=== PATIENT | female | born 1965 | race Caucasian/White ===

== ENCOUNTER 2022-03-30 02:32 | Day surgery (SDC) | payer OTHER, SELFPAY ==
[2022-03-21 08:37] VITALS: BMI 25.9
--- NOTE | 2022-03-30 08:37 | P.PNAN_ITS ---
Anes - Initial Pre Proc Eval Procedure: Operation Date: 03/30/22 11:30 Proposed Procedures p Colonoscopy - Nikita Juarez MD Date/Time: 03/30/22 08:37 Surgeon: Nikita Juarez MD Pre Op Diagnosis: diarrhea, rectal bleed Patient Data Age: 56 Gender: F Height: 1.78 m Weight: 82 kg Allergies Allergy/AdvReac Type Severity Reaction Status Date / Time No Known Drug Allergies Allergy Unknown n/a Verified 03/30/22 10:08 Home Medications Medication Instructions Recorded Confirmed Type albuterol sulfate 90 mcg/actuation 1 puff inhalation Q4H PRN 11/25/21 03/21/22 History aerosol inhaler (Ventolin HFA) Shortness Of Breath valacyclovir 500 mg tablet 500 mg PO DAILY PRN Inflammation 11/25/21 03/21/22 History magnesium 30 mg tablet 30 mg PO DAILY 12/29/21 03/21/22 History pyridoxine (vitamin B6) 25 mg 25 mg PO DAILY 12/29/21 03/21/22 History tablet duloxetine 30 mg capsule,delayed 30 mg PO DAILY 03/07/22 03/21/22 History release metronidazole 0.75 % topical cream 1 applic topical DAILY 03/07/22 03/21/22 History Patient hx anesthesia problems: none Family hx anesthesia problems: none Results Review: All pre-operative results and documents have been reviewed as part of the pre- operative evaluation. [facility] Past Medical History Medical History (Updated 03/30/22 @ 08:38 by Xander Mckay MD) COPD (chronic obstructive pulmonary disease) Depression Inflammatory arthritis Small fiber neuropathy Surgical History Surgical History H/O abdominal hysterectomy History of open heart surgery Family History Family History Father Hypertension Depression Alcoholism Sibling Hypertension Depression Alcoholism Mother Cancer History of parotid cancer Grandparent Breast cancer Social History Social History Smoking packs per day: 1 Smoking cigarettes per day: 20.0 Years smoked: 36 Smoking pack-years: 36.00 Smoking status: Former smoker Tobacco type: cigarettes Alcohol intake: never Substance use: never Substance use type: does not use Living arrangements: with family Spiritual care concerns: No Anes - Eval Final PreProcedure Day of Procedure 03/30/22 08:37 Patient weight: normal Heart: regular rate and rhythm Lungs: clear to auscultation and normal air movement Airway: Mallampati scale class II Neurological: alert and oriented Last oral intake: >/= 8 hours ASA classification: III Emergent: no Anesthetic plan: proceed Anesthesia type and monitoring: general GIVS Results Review: All pre-operative results and documents have been reviewed as part of the pre- operative evaluation. Informed Consent: The patient's anesthetic plan and its attendant risks and benefits were discussed with the patient/family/POA. Questions were solicited and answers provided to the satisfaction of the patient/family/POA.
[2022-03-30 10:09] VITALS: BP 112/60; PULSE 63; RESP 16; TEMP 36.7; O2SAT 97
[2022-03-30] MEDS: LACTATED RINGERS 1,000 ML 150 ML IV CONT (10:11)
--- NOTE | 2022-03-30 10:59 | WPDGICN ---
Assessment and Plan Assessment and plan (1) Chronic diarrhea: Code(s): K52.9 - Noninfective gastroenteritis and colitis, unspecified Status: Acute Assessment and Plan: Patient has chronic history of chronic ongoing diarrhea of uncertain etiology. Plan is for colonoscopy to assess more thoroughly. If this is not fruitful stool cultures may also give additional information. Fiber supplementation may help in the interim. (2) Rectal bleeding: Code(s): K62.5 - Hemorrhage of anus and rectum Status: Acute Assessment and Plan: Patient has intermittent rectal bleeding. Likely related to hemorrhoids but colonoscopy will be required to further evaluate. Further recommendations will be given after endoscopy. GI Consult Note Consult date/time: 03/30/22 10:59 Reason for consult: Chronic diarrhea and rectal bleeding. HPI: Cesilia Allison is a 56 year old female Referred for colonoscopy. Patient reports she has had chronic diarrhea for at least 15 years. She reports watery stool multiple times a day. She states she may only have a formed stool 3 times a year. She does intermittently have a fistful of bright red blood that will pass intermittently. This does not occur very often. She denies any significant associated pain. She has had no bleeding. Occasionally will have some rectal discomfort. She has had no stool cultures done. No prior workup for her diarrhea. She does on her own take [id number] Imodium occasionally. This will shut down the diarrhea for perhaps 2 days and then restart with diarrhea stools after several days. Patient has had no weight loss. She has had no change in her appetite. Past medical history is significant for an atrial septal defect requiring open heart surgery after delivery of her child. Review of Systems Review of Systems: Review of systems noncontributory. [facility] Past Medical History Medical History (Updated 03/30/22 @ 11:02 by Nikita Juarez MD) COPD (chronic obstructive pulmonary disease) Depression Inflammatory arthritis Small fiber neuropathy Surgical History Surgical History H/O abdominal hysterectomy History of open heart surgery Family History Family History Father Hypertension Depression Alcoholism Sibling Hypertension Depression Alcoholism Mother Cancer History of parotid cancer Grandparent Breast cancer Social History Social History Smoking packs per day: 1 Smoking cigarettes per day: 20.0 Years smoked: 36 Smoking pack-years: 36.00 Smoking status: Former smoker Tobacco type: cigarettes Alcohol intake: never Substance use: never Substance use type: does not use Living arrangements: with family Spiritual care concerns: No Meds Home Medications and Allergies Home Medications Medication Instructions Recorded Confirmed Type albuterol sulfate 90 mcg/actuation 1 puff inhalation Q4H PRN 11/25/21 03/21/22 History aerosol inhaler (Ventolin HFA) Shortness Of Breath valacyclovir 500 mg tablet 500 mg PO DAILY PRN Inflammation 11/25/21 03/21/22 History magnesium 30 mg tablet 30 mg PO DAILY 12/29/21 03/21/22 History pyridoxine (vitamin B6) 25 mg 25 mg PO DAILY 12/29/21 03/21/22 History tablet duloxetine 30 mg capsule,delayed 30 mg PO DAILY 03/07/22 03/21/22 History release metronidazole 0.75 % topical cream 1 applic topical DAILY 03/07/22 03/21/22 History Allergies Allergy/AdvReac Type Severity Reaction Status Date / Time No Known Drug Allergies Allergy Unknown n/a Verified 03/30/22 10:08 Vital Signs Vital Signs - 24 hr 03/30/22 10:09 Temperature 98.1 F Pulse Rate 63 Respiratory Rate 16 Blood Pressure 112/60 Pulse Oximetry 97 Oxygen Delivery Room Air Exam Narrative: Physical exam reveals pa
[2022-03-30 11:31] VITALS: BP 95/34; PULSE 60; RESP 21; O2SAT 99
[2022-03-30 11:41] VITALS: BP 104/45; PULSE 51; RESP 15; O2SAT 98
[2022-04-06 19:30] LABS: Gliadin AB, IgG <1.0 U/mL (<15.0); TTG IGA AB <1.0 U/mL (<15.0)
== END 2022-03-30 12:09 | disposition home or self-care (01) ==
PROVIDERS: Visit Provider Internal Medicine Gastroenterology
PROC: 0DJD8ZZ Inspection of Lower Intestinal Tract, Via Natural or Artificial Opening Endoscopic (ICD-10-PCS; CPT 45378; principal; 2022-03-30 11:30)
DX: K62.5 Hemorrhage of anus and rectum (principal); K62.1 Rectal polyp; K59.1 Functional diarrhea; K64.8 Other hemorrhoids; J44.9 Chronic obstructive pulmonary disease, unspecified; F32.A Depression, unspecified; M19.90 Unspecified osteoarthritis, unspecified site; G62.9 Polyneuropathy, unspecified; Z87.891 Personal history of nicotine dependence; Z79.51 Long term (current) use of inhaled steroids
CPT/HCPCS: 45385; 45380; 36415; 83516; 86255; 88305; J2704; J7120

== ENCOUNTER 2023-08-17 14:42 | Emergency (ER) | payer OTHER, SELFPAY ==
[2023-08-17 14:50] VITALS: BP 134/79; PULSE 107; RESP 18; TEMP 36.8; O2SAT 92
--- NOTE | 2023-08-17 14:54 | ED.DIZZY ---
HPI - Dizziness General Chief Complaint: Dizziness Stated Complaint: Shortness of Breath/Dizziness Time Seen by Provider: 08/17/23 14:54 Source: patient, RN notes reviewed and old records reviewed Mode of arrival: ambulatory Limitations: no limitations History of Present Illness HPI Narrative: 57 year old female who presents to [facility] care with complaints of continued shortness of breath and some dizziness which started this morning. Patient reports that she was put on Levaquin on Sunday for pneumonia and has inhaler which she has been using. Patient reports that initially 3 weeks ago saw her PCP and received Doxycycline and prednisone and was told it was flare in her COPD. She was seen again this past Sunday and diagnosed with pneumonia and was started on Levaquin. Patient reports that she has had this dizziness before and saw Dr Trini CALI MD elicited complaint: dizziness and other (continued shortness of breath) Pertinent past history: inner ear problems Onset (ago): week(s) (1) Timing: awoke with symptoms History of similar symptoms: Yes Related Data Home Medications Medication Instructions Recorded Confirmed duloxetine 30 mg capsule,delayed 30 mg PO DAILY 03/07/22 08/17/23 release levofloxacin 750 mg tablet 750 mg PO DIRECTED 08/17/23 08/17/23 Allergies Allergy/AdvReac Type Severity Reaction Status Date / Time No Known Drug Allergies Allergy Unknown n/a Verified 08/17/23 15:06 Review of Systems Review of Systems: CONSTITUTIONAL: Reports malaise, no chills, sweats, or fever. EYES: Denies visual changes, redness, or discharge. ENT: Reports rhinorrhea, congestion, sinus pain,no otalgia and sore throat. CARDIOVASCULAR: Denies chest pain, palpitations, or edema. RESPIRATORY: Reports cough.?Reports dyspnea. GASTROINTESTINAL: Denies abdominal pain, nausea, vomiting, diarrhea SKIN: Denies rash or itching. MUSCULOSKELETAL: Denies myalgia. NEUROLOGIC: Denies headache.reports dizziness All systems reviewed & are unremarkable except as noted in HPI and below PMFSH Past Medical History Medical History COPD (chronic obstructive pulmonary disease) Depression Inflammatory arthritis Small fiber neuropathy Surgical History Surgical History H/O abdominal hysterectomy History of open heart surgery Family History Family History Father Hypertension Depression Alcoholism Sibling Hypertension Depression Alcoholism Mother Cancer History of parotid cancer Grandparent Breast cancer Social History Social History Smoking packs per day: 1 Smoking cigarettes per day: 20.0 Years smoked: 36 Smoking pack-years: 36.00 Smoking status: Former smoker Tobacco type: cigarettes Alcohol intake: never Substance use: never Substance use type: does not use Living arrangements: with family Spiritual care concerns: No Comments At time of signature, agree with nursing past medical, surgical, social and family history. There is no relevant family history pertinent to the presenting complaint Exam Narrative: GENERAL: Well-appearing, well-nourished, and in no acute distress. HEAD: Normocephalic EYES: PERRLA, conjunctivae clear ENT: Nares clear, turbinates edematous and erythematous, clear discharge. Mucous membranes moist. TM pearly catalan with dull light reflex bilaterally; no tragal tenderness. Oropharynx erythematous without lesions. Tonsils not enlarged and without exudate, no drooling, no hoarseness, no trismus, uvula midline.post nasal drainage NECK: Supple. No lymphadenopathy CHEST: Coarse right base on auscultation, breath sounds equal. No wheezing, rhonchi, rales, or stridor. No respiratory distress, speaks in full sentences.cough with some dys
== END 2023-08-17 15:41 | disposition home or self-care (01) ==
PROVIDERS: Emergency Provider Registered Nurse
DX: R05.9 Cough, unspecified (principal); R42 Dizziness and giddiness; Z79.899 Other long term (current) drug therapy; Z87.891 Personal history of nicotine dependence
CPT/HCPCS: 99213; G0463

== ENCOUNTER 2023-09-12 10:10 | Emergency (ER) | payer OTHER, SELFPAY ==
--- NOTE | ~2023-09-12 | XR_ITS ---
EXAMINATION: XR chest 2V DATE: 09/12/2023 10:34 INDICATION: Cough with left-sided chest pain TECHNIQUE: frontal and lateral views of the chest were obtained. COMPARISON: None FINDINGS: Mild streaky bibasilar atelectasis and bilateral small paracardial fat pads. No other airspace opacit ies, pulmonary edema, pleural effusion or pneumothorax. Heart size is normal. Median sternotomy wires are present. IMPRESSION: 1. Mild streaky bibasilar atelectasis. Reviewed, dictated and finalized at location A. NICAL ADVISOR
[2023-09-12 10:21] VITALS: BP 135/72; PULSE 84; RESP 16; TEMP 36.9; O2SAT 97
--- NOTE | 2023-09-12 10:24 | ED.GENADULT ---
HPI - General Adult General Chief complaint: Upper Respiratory Infection Stated complaint: Cough/Chest Pain Source: patient, RN notes reviewed and old records reviewed Mode of arrival: ambulatory Limitations: no limitations History of Present Illness HPI narrative: 57-year-old female presents to [facility] with complaints of cough and chest congestion that started around Thanksgiving. Patient states has taken Levaquin and steroids without relief. Patient states saw software test analyst yesterday and was scheduled for pulmonary function tests. Patient states presents today because pain in left rib area that started this a.m.. MD complaint: chest pain Onset (ago): hour(s) (3) Related Data Home Medications Medication Instructions Recorded Confirmed duloxetine 30 mg capsule,delayed 30 mg PO DAILY 03/07/22 08/17/23 release Allergies Allergy/AdvReac Type Severity Reaction Status Date / Time No Known Drug Allergies Allergy Unknown n/a Verified 08/17/23 15:06 Review of Systems Constitutional: Constitutional: Reports no additional constitutional complaints, Denies body ache(s), Denies chills, Denies fatigue, Denies fever(s) and Denies headache(s) Eyes: Eyes: Reports no additional eye complaints and Denies blurry vision ENT: Reports system reviewed and no additional complaints, except as documented, Denies vertigo, Denies dizziness, Denies ear discharge, Denies otalgia, Denies facial pain, Denies headache(s), Denies nasal congestion, Denies nasal discharge, Denies sinus pain, Denies sinus pressure and Denies sore throat Cardiovascular: Cardiovascular: Reports no additional cardiovascular complaints, Reports chest pain, Denies chest pain at rest, Denies rapid heart rate and Denies dyspnea Respiratory: Respiratory: Reports no additional respiratory complaints, Reports chest congestion, Reports cough, Denies pain on inspiration, Denies pain with cough and Denies dyspnea Gastrointestinal: Gastrointestinal: Denies abdominal pain, Denies diarrhea, Denies nausea and Denies vomiting Integumentary/Breasts: Skin/Breast: Denies rash Neurologic: Reports system reviewed and no additional complaints, except as documented, Denies vertigo, Denies dizziness and Denies headache(s) Endocrine: Endocrine: Denies fatigue PMFSH Past Medical History Medical History COPD (chronic obstructive pulmonary disease) Depression Inflammatory arthritis Small fiber neuropathy Surgical History Surgical History H/O abdominal hysterectomy History of open heart surgery Family History Family History Father Hypertension Depression Alcoholism Sibling Hypertension Depression Alcoholism Mother Cancer History of parotid cancer Grandparent Breast cancer Social History Social History Smoking packs per day: 1 Smoking cigarettes per day: 20.0 Years smoked: 36 Smoking pack-years: 36.00 Smoking status: Former smoker Tobacco type: cigarettes Alcohol intake: never Substance use: never Substance use type: does not use Living arrangements: with family Spiritual care concerns: No Comments At the time of my signature, I reviewed and agree with the nursing past medical, surgical, social, and family history. There is no relevant family history pertinent to the patient complaint. Exam Const: General: cooperative, healthy appearing, no acute distress and well nourished Nutritional Appearance: well nourished Orientation/consciousness: patient oriented x3 Limitations: no limitations HENMT: Head: normal to inspection and normocephalic Ears: external ears normal, TM's normal bilaterally, mastoids normal and Abnormal EAC present Face/Nose/Sinus: normal facial exam Face and sinus: normal facial exam Mouth: Yes No
--- NOTE | 2023-09-12 12:57 | ECG_ITS ---
Measurements Intervals [place] Rate: 85 P: 77 UT: 159 QRS: 81 QRSD: 92 T: 70 QT: 395 QTc: 472 Interpretive Statements SINUS RHYTHM INCOMPLETE RIGHT BUNDLE BRANCH BLOCK BORDERLINE T WAVE ABNORMALITY- ANTERIOR LEADS BASELINE ARTIFACT- I, III, AVL, AVF BORDERLINE ECG NO PREVIOUS ECG AVAILABLE FOR COMPARISON Electronically Signed On 09-12-2023 13:40:10 OFFICE SECRETARY by Abad Walker D.O.
== END 2023-09-12 11:18 | disposition home or self-care (01) ==
PROVIDERS: Emergency Provider Registered Nurse
DX: J20.9 Acute bronchitis, unspecified (principal); I45.10 Unspecified right bundle-branch block; Z87.891 Personal history of nicotine dependence; J44.9 Chronic obstructive pulmonary disease, unspecified; M13.80 Other specified arthritis, unspecified site; G62.89 Other specified polyneuropathies
CPT/HCPCS: 71046; 93005; 99213; G0463

== ENCOUNTER 2024-01-03 10:31 | Emergency (ER) | payer OTHER, SELFPAY ==
[2024-01-03 10:48] VITALS: BP 145/72; PULSE 89; RESP 20; TEMP 36.9; O2SAT 97
--- NOTE | 2024-01-03 11:03 | ED.URI ---
HPI - URI/Sore Throat General Chief Complaint: Upper Respiratory Infection Stated Complaint: Chest congestion Time Seen by Provider: 01/03/24 11:03 Source: patient, RN notes reviewed and old records reviewed Mode of arrival: ambulatory Limitations: no limitations History of Present Illness HPI Narrative: 58-year-old female to [facility] with complaint of chest congestion and cough for 4 days. Patient states the cough became productive this morning while in the shower then that she coughed blood-tinged sputum. Patient reports history of former tobacco use, COPD, pneumonia. Patient denies allergies, fevers. patient in no acute distress. Respirations even and nonlabored. Patient able tolerate fluids by mouth. Related Data Home Medications Medication Instructions Recorded Confirmed duloxetine 30 mg capsule,delayed 30 mg PO DAILY 03/07/22 08/17/23 release Adults Multivitamin 01/03/24 potassium perchlorate 01/03/24 topiramate 25 mg tablet mg 01/03/24 Allergies Allergy/AdvReac Type Severity Reaction Status Date / Time No Known Drug Allergies Allergy Unknown n/a Verified 01/03/24 10:34 Review of Systems Review of Systems: All systems reviewed & are unremarkable except as noted in HPI and below Constitutional: Constitutional: Reports as per HPI, Denies fatigue and Denies fever(s) Eyes: Eyes: Reports no additional eye complaints ENT: Reports system reviewed and no additional complaints, except as documented Cardiovascular: Cardiovascular: Reports no additional cardiovascular complaints, Denies chest pain and Denies dyspnea Respiratory: Respiratory: Reports as per HPI, Reports chest congestion, Reports cough and Denies dyspnea Comments: Pt c/o substernal chest tightness Musculoskeletal: Musculoskeletal: Reports no additional musculoskeletal complaints Neurologic: Reports system reviewed and no additional complaints, except as documented Psychiatric: Psychiatric: Reports no additional psychiatric complaints [facility] Past Medical History Medical History COPD (chronic obstructive pulmonary disease) Depression Inflammatory arthritis Small fiber neuropathy Surgical History Surgical History H/O abdominal hysterectomy History of open heart surgery Family History Family History Father Hypertension Depression Alcoholism Sibling Hypertension Depression Alcoholism Mother Cancer History of parotid cancer Grandparent Breast cancer Social History Social History Smoking packs per day: 1 Smoking cigarettes per day: 20.0 Years smoked: 36 Smoking pack-years: 36.00 Smoking status: Former smoker Tobacco type: cigarettes Alcohol intake: never Substance use: never Substance use type: does not use Living arrangements: with family Spiritual care concerns: No Comments At the time of my signature, I reviewed and agree with the nursing past medical, surgical, social, and family history. There is no relevant family history pertinent to the patient complaint. Exam Const: General: cooperative, healthy appearing, comfortable, no acute distress, alert, anxious and well nourished Nutritional Appearance: well nourished Orientation/consciousness: patient oriented x3 Limitations: no limitations HENMT: Head: normal to inspection Ears: TM abnormal erythematous on the right and with fluid behind the TM on the right and diffuse Face/Nose/Sinus: Normal external nose present, Normal nares present, normal facial exam, No erythema and No edema Face and sinus: normal facial exam, no erythema and no edema Mouth: Yes Normal oral and palatal mucosa present Eyes: General: appearance normal, both eyes and all related structures Neck: Neck: normal vis
[2024-01-03] MEDS: ALBUTEROL SULFATE NEB 2.5 MG/3 ML INH INHALATION (11:31)
[2024-01-03] MEDS: IPRATROPIUM BR 0.02% INH SOLN 0.5 MG/2.5 ML VIAL INHALATION (11:31)
[2024-01-03 12:10] VITALS: PULSE 91; RESP 16; O2SAT 96
== END 2024-01-03 12:10 | disposition home or self-care (01) ==
PROVIDERS: Emergency Provider Nurse Practitioner Family
DX: J40 Bronchitis, not specified as acute or chronic (principal); J06.9 Acute upper respiratory infection, unspecified; J44.9 Chronic obstructive pulmonary disease, unspecified; M13.80 Other specified arthritis, unspecified site; G62.9 Polyneuropathy, unspecified; Z87.891 Personal history of nicotine dependence
CPT/HCPCS: 94640; 99213; G0463

== ENCOUNTER 2024-05-17 13:57 | Emergency (ER) | payer OTHER, SELFPAY ==
[2024-05-17 14:24] VITALS: BP 110/62; PULSE 96; RESP 20; TEMP 37; O2SAT 96
[2024-05-17 14:50] LABS: EDUAAPPEAR Cloudy; EDUABILI Negative (Negative); EDUABLOOD Trace (Negative); EDUACOLOR1 Yellow; EDUAGLUCOSE Negative (Negative); EDUAKETONE Negative (Negative); EDUALEUKO 1+ (Negative); EDUANITRATE Negative (Negative); EDUAPH 6.5; EDUAPROTEIN Negative (Negative); EDUASPGRAVITY 1.015; EDUAUROBILI 0.2
--- NOTE | 2024-05-17 21:31 | ED.GENADULT ---
HPI - General Adult General Chief complaint: Urogenital-Female Stated complaint: poss uti or kidney issue Time Seen by Provider: 05/17/24 14:38 Source: patient, RN notes reviewed and old records reviewed Mode of arrival: ambulatory Limitations: no limitations History of Present Illness HPI narrative: 58-year-old female to [facility] with complaint of right flank pain for 1 week and bilateral flank pain for past 2 days. Patient sources pain radiating to right lower quadrant. Patient denies nausea, bowel changes , fever, vomiting, allergies. Patient also endorsing urinary frequency. patient endorses UTI several years ago. Patient resting comfortably in exam room in no acute distress. Patient able to tolerate fluids by mouth. Related Data Home Medications Medication Instructions Recorded Confirmed duloxetine 30 mg capsule,delayed 30 mg PO DAILY 03/07/22 08/17/23 release Adults Multivitamin 01/03/24 potassium perchlorate 01/03/24 topiramate 25 mg tablet mg 01/03/24 Allergies Allergy/AdvReac Type Severity Reaction Status Date / Time No Known Drug Allergies Allergy Unknown n/a Verified 01/03/24 10:34 Review of Systems Review of Systems: All systems reviewed & are unremarkable except as noted in HPI and below Constitutional: Constitutional: Reports no additional constitutional complaints Eyes: Eyes: Reports no additional eye complaints ENT: Reports system reviewed and no additional complaints, except as documented Cardiovascular: Cardiovascular: Reports no additional cardiovascular complaints, Denies chest pain and Denies dyspnea Respiratory: Respiratory: Reports no additional respiratory complaints, Denies cough and Denies dyspnea Musculoskeletal: Musculoskeletal: Reports no additional musculoskeletal complaints Neurologic: Reports system reviewed and no additional complaints, except as documented Psychiatric: Psychiatric: Reports no additional psychiatric complaints [facility] Past Medical History Medical History COPD (chronic obstructive pulmonary disease) Depression Inflammatory arthritis Small fiber neuropathy Surgical History Surgical History H/O abdominal hysterectomy History of open heart surgery Family History Family History Father Hypertension Depression Alcoholism Sibling Hypertension Depression Alcoholism Mother Cancer History of parotid cancer Grandparent Breast cancer Social History Social History Smoking packs per day: 1 Smoking cigarettes per day: 20.0 Years smoked: 36 Smoking pack-years: 36.00 Smoking status: Former smoker Tobacco type: cigarettes Alcohol intake: never Substance use: never Substance use type: does not use Living arrangements: with family Spiritual care concerns: No Comments At the time of my signature, I reviewed and agree with the nursing past medical, surgical, social, and family history. There is no relevant family history pertinent to the patient complaint. Exam Const: General: cooperative, healthy appearing, comfortable, no acute distress, alert and well nourished Nutritional Appearance: well nourished Orientation/consciousness: patient oriented x3 Limitations: no limitations HENMT: Head: normal to inspection Ears: external ears normal Face/Nose/Sinus: Normal external nose present, Normal nares present, normal facial exam, No erythema and No edema Face and sinus: normal facial exam, no erythema and no edema Mouth: Yes Normal oral and palatal mucosa present Eyes: General: appearance normal, both eyes and all related structures Neck: Neck: normal visual inspection, full ROM and no meningeal signs Lymphatic: no lymphadenopathy noted and no lymphedema noted Chest: Chest
== END 2024-05-17 15:21 | disposition home or self-care (01) ==
PROVIDERS: Emergency Provider Nurse Practitioner Family
DX: N39.0 Urinary tract infection, site not specified (principal); J44.9 Chronic obstructive pulmonary disease, unspecified; M13.80 Other specified arthritis, unspecified site; Z87.891 Personal history of nicotine dependence
CPT/HCPCS: 81003; 87086; 87088; 99213; G0463

== ENCOUNTER 2024-06-30 11:30 | Emergency (ER) | payer OTHER, SELFPAY ==
--- NOTE | 2024-06-30 11:32 | ED.URI ---
HPI - URI/Sore Throat General Chief Complaint: Upper Respiratory Infection Stated Complaint: Sore Throat/Congestion/Cough Time Seen by Provider: 06/30/24 11:31 Source: patient Mode of arrival: ambulatory Limitations: no limitations History of Present Illness HPI Narrative: Patient is a 50-year-old female who presents with congestion, sore throat cough that started last night. Patient has been around grandson that has had similar symptoms over the weekend. Denies any fever, chills, nausea, vomiting, diarrhea. Has taken Delsym for cough. Reports history of COPD Related Data Home Medications Medication Instructions Recorded Confirmed duloxetine 30 mg capsule,delayed 30 mg PO DAILY 03/07/22 06/30/24 release topiramate 25 mg tablet 25 mg PO BID 01/03/24 06/30/24 magnesium mal 50 mg-potassium cit 1 tablet PO DAILY 06/30/24 06/30/24 25 mg-taurine 175 mg-B6 1 mg tablet multivitamin with minerals-folic 1 tablet PO DAILY 06/30/24 06/30/24 acid 0.4 mg tablet Allergies Allergy/AdvReac Type Severity Reaction Status Date / Time No Known Drug Allergies Allergy Unknown n/a Verified 06/30/24 11:40 Review of Systems Review of Systems: All systems reviewed & are unremarkable except as noted in HPI and below Constitutional: Constitutional: Denies body ache(s), Denies chills, Denies fatigue, Denies fever(s), Denies headache(s), Denies malaise and Denies weakness Eyes: Eyes: Denies blurry vision, Denies itchy eyes and Denies loss of vision ENT: Denies otalgia, Denies headache(s), Reports nasal congestion, Denies sinus pain and Reports sore throat Cardiovascular: Cardiovascular: Denies chest pain, Denies irregular heart rhythm and Denies dyspnea Respiratory: Respiratory: Reports cough and Denies dyspnea Gastrointestinal: Gastrointestinal: Denies abdominal pain, Denies diarrhea, Denies nausea and Denies vomiting Musculoskeletal: Musculoskeletal: Denies back pain, Denies myalgias and Denies arthralgias Integumentary/Breasts: Skin/Breast: Denies pruritus and Denies rash Neurologic: Denies headache(s), Denies loss of vision and Denies weakness Psychiatric: Psychiatric: Reports no additional psychiatric complaints Endocrine: Endocrine: Denies fatigue Allergic/Immunologic: Allergic/Immunologic: Denies itchy eyes PMFSH Past Medical History Medical History COPD (chronic obstructive pulmonary disease) Depression Inflammatory arthritis Small fiber neuropathy Surgical History Surgical History H/O abdominal hysterectomy History of open heart surgery Family History Family History Father Hypertension Depression Alcoholism Sibling Hypertension Depression Alcoholism Mother Cancer History of parotid cancer Grandparent Breast cancer Social History Social History Smoking packs per day: 1 Smoking cigarettes per day: 20.0 Years smoked: 36 Smoking pack-years: 36.00 Smoking status: Former smoker Tobacco type: cigarettes Alcohol intake: never Substance use: never Substance use type: does not use Living arrangements: with family Spiritual care concerns: No Comments At time of signature, agree with nursing past medical, surgical, social and family history. There is no relevant family history pertinent to the presenting complaint. Exam Const: General: cooperative, healthy appearing, comfortable, no acute distress and well nourished Nutritional Appearance: well nourished Orientation/consciousness: patient oriented x3 Limitations: no limitations HENMT: Head: normal to inspection, normocephalic and atraumatic Ears: hearing grossly normal bilaterally, external ears normal, TM's normal bilaterally, EAC's normal and no periauricular adenopathy Face/Nose/Sinus: Normal exte
[2024-06-30 11:36] VITALS: BP 133/80; PULSE 90; RESP 20; TEMP 36.5; O2SAT 98
[2024-06-30 11:51] VITALS: BP 133/80; PULSE 90; RESP 20; TEMP 36.5; O2SAT 98
[2024-06-30 12:06] LABS: EDSTREPNEGPOS1 Negative (Negative)
== END 2024-06-30 12:10 | disposition home or self-care (01) ==
PROVIDERS: Emergency Provider Nurse Practitioner Family
DX: J06.9 Acute upper respiratory infection, unspecified (principal); Z87.891 Personal history of nicotine dependence; J44.9 Chronic obstructive pulmonary disease, unspecified; M13.80 Other specified arthritis, unspecified site; G62.9 Polyneuropathy, unspecified
CPT/HCPCS: 87081; 87880; 99213; G0463

== ENCOUNTER 2024-09-22 13:12 | Emergency (ER) | payer OTHER, SELFPAY ==
[2024-09-22 13:18] VITALS: BP 152/84; PULSE 80; RESP 20; TEMP 36.6; O2SAT 94
--- NOTE | 2024-09-22 13:26 | ED_ITS ---
HPI - General Adult General Stated complaint: chest pains Time Seen by Provider: 09/22/24 13:20 Source: patient Mode of arrival: ambulatory Limitations: no limitations History of Present Illness HPI narrative: 58-year-old female with a history of copd and ASD (surgery age 22) presented for complaint of chest pain intermittently for 1 week. Endorses seeking evaluation today because she felt nausea, a little dizzy and tingling sensation to under arms. Currently rates pain 2/10 states at it's worse 7/10. Pain increases with deep breaths. She took 800 mg ibuprofen. Endorses a cough over 1 week ago For which she took Augmentin. Currently denies palpitations, shortness of breath, wheezing, nausea, vomiting, diarrhea, dizziness, fatigue, fever, or sweating. Related Data Home Medications ?Medication ?Instructions ?Recorded ?Confirmed ?Last Taken ?Type duloxetine 30 mg capsule,delayed 30 mg PO DAILY 03/07/22 06/30/24 Unknown History release magnesium mal 50 mg-potassium cit 1 tablet PO DAILY 06/30/24 06/30/24 Unknown History 25 mg-taurine 175 mg-B6 1 mg tablet multivitamin with minerals-folic 1 tablet PO DAILY 06/30/24 06/30/24 Unknown History acid 0.4 mg tablet fluticasone propionate 50 2 spray intranasal DAILY 09/22/24 Unknown History mcg/actuation nasal spray,suspension mometasone-formoterol HFA 100 1 puff inhalation Q12H 09/22/24 Unknown History mcg-5 mcg/actuation aerosol inhaler (Dulera) Allergies Allergy/AdvReac Type Severity Reaction Status Date / Time No Known Drug Allergies Allergy Unknown n/a Verified 06/30/24 11:40 DIET PILLS Allergy Severe Swelling Uncoded 09/22/24 13:36 of Lip/Tongue/Throat Review of Systems Review of Systems: ROS per HPI All systems reviewed & are unremarkable except as noted in HPI and below PMFSH Past Medical History Medical History (Updated 09/22/24 @ 13:48 by Leah Raza APRN) Atrial septal defect Depression Inflammatory arthritis Small fiber neuropathy COPD (chronic obstructive pulmonary disease) Surgical History Surgical History H/O abdominal hysterectomy History of open heart surgery Family History Family History Father Hypertension Depression Alcoholism Sibling Hypertension Depression Alcoholism Mother Cancer History of parotid cancer Grandparent Breast cancer Social History Social History Smoking packs per day: 1 Smoking cigarettes per day: 20.0 Years smoked: 36 Smoking pack-years: 36.00 Smoking status: Former smoker Tobacco type: cigarettes Alcohol intake: never Substance use: never Substance use type: does not use Living arrangements: with family Spiritual care concerns: No Comments At time of signature, I have reviewed and agree with nursing past medical, surgical, social and family history unless otherwise noted. Please see nursing chart for further information. There is no relevant family history pertinent to the presenting complaint Exam Narrative: GENERAL: Well-appearing, well-nourished, and in no acute distress. EYES: EOMI. No redness or drainage. Conjunctivae normal. ENT: Mucous membranes pink and moist. No rhinorrhea. NECK: Normal AROM. Supple. No lymphadenopathy. CHEST: No respiratory distress. Clear to auscultation. HEART: Regular rate and rhythm. No murmur appreciated. Normal peripheral pulses. ABDOMEN: Soft, nontender, nondistended, normal active bowel sounds. MUSCULOSKELETAL: No bony tenderness. EXTREMITIES: Normal range of motion. No edema. SKIN: Warm, dry, no rash. Capillary refill normal. Normal skin turgor. NEURO: No focal deficits. Alert and oriented x3. Gait steady. PSYCH: Normal affect. No signs of depression or anxiety. Course Course Emergency Course: Patient is aware of diagnosis, understands and agrees to treatment plan. Anticipatory guidance given. Patient agrees to follow-up as directed and is aware of reasons to seek care at the emergency department. Portions of this record may have been created with voice recognition software Level of Care: Express Care Visit Transfer Transfered to: [facility]) Transportation: Other ( private vehicle) Transfer rationale: Pt is agreeable to transfer. Requests transfer to [facility] via private vehicle; declined ambulance. Risks of transportation reviewed with pt including injury, worsening of condition and . v/u. will be driving pt; Report called to hospital, spoke with Columba PADILLA, Dr Vogt accepting physician. Pt is in stable condition at time of transfer. Advised to remain NPO and go directly to the hospital. Medical Decision Making MDM Narrative Medical decision making narrative: Patient presented with intermittent chest pain for 1 week, EKG NSR. history of ASD. Advised ER transfer. She declined EMS and will have her drive. Patient is currently stable. Vital signs stable. Differential Diagnosis Differential Diagnosis: STEMI, AAA, PE, pneumothorax, cardiac tamponade, esophageal rupture, pneumonia, GERD, musculoskeletal pain, endocarditis, pericarditis, URI, bronchitis, anxiety Vital Signs Vital Signs: reviewed ECG Data EKG #1: Attestation: I personally reviewed and interpreted this ECG as follows: ( Sinus rhythm 78, KS 139, QRS 90, QT /QTC 390/423) ECG completion date: 09/22/24 ECG completion time: 13:18 Prior ECG tracings: available for review EKG Interpretation: normal rate, sinus rhythm and RBBB Discharge Plan Discharge Clinical Impression: Chest pain Qualifiers: Chest pain type: unspecified Qualified Code(s): R07.9 - Chest pain, unspecified Condition: Stable Patient Language: Portuguese Prescriptions: No Action multivit with min-folic acid [Adult One Daily Multivitamin] 0.4 mg Tablet 1 tablet PO DAILY magnesium mal-pot cit-taur-B6 50-25-175-1 mg Tablet 1 tablet PO DAILY topiramate 25 mg tablet 25 mg PO BID duloxetine 30 mg capsule,delayed release(DR/EC) 30 mg PO DAILY Follow-up/Referrals: Kathleen,Yvon Nicole MD [Primary Care Provider] - Time of Disposition: 13:40
--- NOTE | 2024-09-22 13:26 | ECG_ITS ---
Test Date: 2024-09-22 13:18:50 Measurements Intervals [place] Rate: 78 P: 32 ME: 139 QRS: 77 QRSD: 90 T: 61 QT: 390 QTc: 444 Interpretive Statements SINUS RHYTHM POSSIBLE RIGHT VENTRICULAR CONDUCTION DELAY [RSR (QR) IN V1/V2] MODERATE ST DEPRESSION [0.05+ mV ST DEPRESSION] WARNING: DATA QUALITY MAY AFFECT INTERPRETATION No previous ECG available for comparison Electronically Signed On 09-22-2024 21:49:31 [employer] by Torie Villarreal M.D.
[2024-09-22 13:43] VITALS: BP 155/87; PULSE 76
== END 2024-09-22 13:43 | disposition short-term general hospital (02) ==
PROVIDERS: Emergency Provider Nurse Practitioner Family; PCP Family Medicine
DX: R07.9 Chest pain, unspecified (principal); Z87.891 Personal history of nicotine dependence; J44.9 Chronic obstructive pulmonary disease, unspecified; M13.80 Other specified arthritis, unspecified site
CPT/HCPCS: 93005; 99213; G0463

== ENCOUNTER 2024-11-27 19:18 | Emergency (ER) | payer OTHER, SELFPAY ==
--- NOTE | ~2024-11-27 | XR_ITS ---
CHEST RADIOGRAPH, PA AND LATERAL CLINICAL HISTORY: cough, fever, HX smoke, HX COPD, OHS . COMPARISON: 09/12/2023 TECHNIQUE: PA and lateral views of the chest. FINDINGS Sternal wires and mediastinal clips are identified, the wires are midline and intact. The remainder of the cardiomediastinal silhouette is otherwise unremarkable. The lungs are clear. Visualized osseous structures and soft tissues are unremarkable. IMPRESSION: No focal infiltrate or effusion. Reviewed, dictated and finalized at location A.
--- OUTSIDE RECORDS SUMMARY | 2024-11-27 19:20 | XMS_ITS | Clinical Summary ---
Author Organization [facility] Address [address] [address] Care Team Providers Care Fitness Plan Coordinator Name Role Phone Unavailable Primary Care Provider Unavailabl e Source Comments [facility],non-owned Affiliates and Associated Physician Practices is amultiple site organization consisting of ambulatory clinics and hospital sitesin [place], [place], [place] and [place]. This disclosure is being madepursuant to the Care Everywhere program and may not contain all information available regarding this patient. Last updated 18.[facility] Encounters Date Type Department Care Team Description 10/28/2024 Travel from Last 3 Months Social History Tobacco Use Types Packs/Day Years Used Date Smoking Tobacco: Never Assessed Sex and Gender Information Value Date Recorded Sex Assigned at Not on file Gender Identity Not on file Sexual Orientation Not on file Plan of Treatment Health Maintenance Due Date Last Done Comments COLOGUARD (AGES 45-75) - COL ON CA SCREENING 1965 COLON MONITORING 1965 COLONOSCOPY - COLON CA SCREENING 1965 CT COLONOGRAPHY - COLON CA SCREENING 1965 Colorectal Cancer Screening 1965 FIT - COLON CA SCREENING 1965 FLEX SIG - COLON CA SCREENING 1965 LIPID TESTING 1965 MAMMOGRAM 1965 PAP SMEAR 1965 HIV SCREENING 1980 HEPATITIS C SCREENING 10/21/1983 DTAP/TDAP/TD VACCINES (1 - Tdap) 1984 HEPATITIS B VACCINE (1 of 3 - 19+ 3-dose series) 1984 PNEUMOCOCCAL VACCINE 50+ (1 of 1 - PCV) 2015 ZOSTER VACCINE (1 of 2) 2015 COVID-19 VACCINE ( - 2023-2 5 season) 2024 INFLUENZA VACCINE (#1) 2024 DEPRESSION SCREENING 09/10/2024 HIB VACCINE Aged Out No longer eligi ble based on patient's age to complete this topic HPV VACCINE Aged Out No longer eligi ble based on patient's age to complete this topic MENINGOCOCCAL (Group B) VACC INE SHARED DECISION-MAKING Aged Out No longer eligibl e based on patient's age to complete this topic MENINGOCOCCAL GROUPS A/C/Y/W VACCINE Aged Out No longer eligible b ased on patient's age to complete this topic Cesilia Allison Personal/Family Self 1965 [address], [id number]
--- OUTSIDE RECORDS SUMMARY | 2024-11-27 19:20 | XMS_ITS | Data Portability ---
Author Organization [place] [facility], Jose Valdovinos Address [address] [place] [address] Assessment No assessment recorded. Plan of Treatment Reminders Order Date Submit Date Provider Last Modified By Organization Details Last Modified Time Details Appointments InPerson; Chronic Disease Mgmt 2024 09:00A M Vesna Wang MD Not available Not available Not available Lab HbA1c (hemoglob in A1c), blood 2024 025 [facility] [address] [place], [address], 10/28/2024 08:38:54 lipid panel, serum 2024 025 [facility] [address] [place], [address], 10/28/2024 08:38:53 BMP, serum or plasma 2024 025 [facility] [address] [place], [address], 10/28/2024 08:38:53 urinalysi s, dipstick 2023 024 [facility], [address] [place] [address], [phone], 06/09/2024 10:08:42 BMP, serum or plasma 2023 024 [facility] [address] [place], [address], 06/10/2024 08:26:50 Referral pulmonolo gist referral [address] [facility], [address] [place] [address], [place], [address], 11/20/2024 15:51:07 Procedures home sleep testing (PROC) [address] [facility] - Home Sleep Testing, [address] , [place] [address], [place], [address], 10/23/2024 08:47:39 electroca rdiogram, routine ECG, 12 leads min; interpret ation and report (PROC) 2023 024 [facility] Not available 04/04/2024 12:35:08 Surgeries None recorded. Imaging LDCT, chest, for lung cancer screening 2024 025 [email or web address] [facility], [address] [place] [address], [place], [address], 11/10/2024 13:00:08 electroca rdiogram 2024 025 [facility], [address] [place] [address], [phone], 10/27/2024 12:21:45 US, duplex, arterial, lower extremity - Bilateral claudicat ion symptoms. Known CAD and former smoker [address] [facility], [address] [place] [address], [place], [address], 11/24/2024 15:55:50 Medication Orders rosuvasta tin 5 mg tablet 2024 025 [facility], [address] [place] [address], [address], 10/01/2024 12:23:19 fluticaso ne propionat e 50 mcg/actua tion nasal spray,manpreet pension 2023 024 [facility], [address] [place] [address], [address], 09/04/2024 16:12:35 amoxicill in 875 mg-potass ium clavulana te 125 mg tablet 2023 024 [facility], [address] [place] [address], [address], 10/01/2024 10:38:09 Dulera 100 mcg-5 mcg/actua tion HFA aerosol inhaler 2023 024 [facility], [address] [place] [address], [address], 09/04/2024 16:15:01 Patient TargetsNo targets recorded. Patient InstructionsNo instructions recorded. 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) [address] [place], [address], 06/10/2024 08:26:50 06/09/2006/10/2024 BASIC METAB OLIC PANEL (8) BUN 12 mg/dL 6-24 normal Not Available [facility] ([facility]) [address] [place], [address], 06/10/2024 08:26:50 06/09/2006/10/2024 BASIC METAB OLIC PANEL (8) creatinine 0.78 mg/dL 0.57-1 .00 normal Not Available [facility] ([facility]) [address] [place], [address], 06/10/2024 08:26:50 06/09/20 24 06/10/2024 BASIC METAB OLIC PANEL (8) eGFR 88 mL/mi n/1.7 3 >59 normal Not Available [facility] ([facility]) [address] [facility], [place], [address], 06/10/2024 08:26:50 06/09/20 24 06/10/2024 BASIC METAB OLIC PANEL (8) BUN/creatini ne ratio 15 9-23 normal Not Available [facility] ([facility]) [address] [place], [address], 06/10/2024 08:26:50 06/09/20 24 06/10/2024 BASIC METAB OLIC PANEL (8) sodium 141 mmol/ L 134-14 4 normal Not Available [facility] ([facility]) [address] [place], [address], 06/10/2024 08:26:50 06/09/20 24 06/10/2024 BASIC METAB OLIC PANEL (8) potassium 5.0 mmol/ L 3.5-5. 2 normal Not Available [facility] ([facility]) [address] [place], [address], 06/10/2024 08:26:50 06/09/20 24 06/10/2024 BASIC METAB OLIC PANEL (8) chloride 105 mmol/ L 96-106 normal Not Available [facility] ([facility]) [address] [place], [address], 06/10/2024 08:26:50 06/09/20 24 06/10/2024 BASIC METAB OLIC PANEL (8) carbon dioxide, total 22 mmol/ L 20-29 normal Not Available [facility] ([facility]) [address] [place], [address], 06/10/2024 08:26:50 06/09/20 24 06/10/2024 BASIC METAB OLIC PANEL (8) calcium 9.2 mg/dL 8.7-10 .2 normal Not Available [facility] ([facility]) [address] [facility], [place], [address], 06/10/2024 08:26:50 06/09/2006/09/2024 urina lysis , dipst ick Color Yellow Not Available [facility] [address] [place] [address], [address], 06/06/2024 09:53:54 06/09/2006/09/2024 urina lysis , dipst ick Appearance Clear Not Available [address], [address], 06/06/2024 09:53:54 06/09/2006/09/2024 urina lysis , dipst ick Leukocytes negati ve Not Available [facility] [address] [place] [address], [address], 06/06/2024 09:53:54 06/09/2006/09/2024 urina lysis , dipst ick Nitrites negati ve Not Available [facility] [address] [place] [address], [address], 06/06/2024 09:53:54 06/09/2006/09/2024 urina lysis , dipst ick Urobilinogen Normal (0.2) Not Available [facility] [address] [place] [address], [address], 06/06/2024 09:53:54 06/09/2006/09/2024 urina lysis , dipst ick Protein negati ve Not Available [facility] [address] [place] [address], [address], 06/06/2024 09:53:54 06/09/2006/09/2024 urina lysis , dipst ick pH 7 Not Available [facility] [address] [place] [address], [address], 06/06/2024 09:53:54 06/09/20 24 06/09/2024 urina lysis , dipst ick Blood negati ve Not Available [facility] [address] [place] [address], [address], 06/06/2024 09:53:54 06/09/2006/09/2024 urina lysis , dipst ick Specific [place] 1.020 Not Available [facility] [address] [place] [address], [address], 06/06/2024 09:53:54 06/09/2006/09/2024 urina lysis , dipst ick Ketone negati ve Not Available [facility] [address] [place] [address], [address], 06/06/2024 09:53:54 06/09/20 24 06/09/2024 urina lysis , dipst ick Bilirubin negati ve Not Available [facility] [address] [place] [address], [address], 06/06/2024 09:53:54 06/09/2006/09/2024 urina lysis , dipst ick Glucose negati ve Not Available [facility] [address] [place] [address], [address], 06/06/2024 09:53:54 10/27/1910/28/2024 BASIC METAB OLIC PANEL (8) glucose 95 mg/dL 70-99 normal Not Available [facility] ([facility]) [address] [place], [address], 10/28/2024 08:38:53 10/27/19 25 10/28/2024 BASIC METAB OLIC PANEL (8) BUN 14 mg/dL 6-24 normal Not Available [facility] ([facility]) [address] [place], [address], 10/28/2024 08:38:53 10/27/19 25 10/28/2024 BASIC METAB OLIC PANEL (8) creatinine 0.80 mg/dL 0.57-1 .00 normal Not Available [facility] ([facility]) [address] [place], [address], 10/28/2024 08:38:53 10/27/19 25 10/28/2024 BASIC METAB OLIC PANEL (8) eGFR 85 mL/mi n/1.7 3 >59 normal Not Available [facility] ([facility]) [address] [place], [address], 10/28/2024 08:38:53 10/27/19 25 10/28/2024 BASIC METAB OLIC PANEL (8) BUN/creatini ne ratio 18 9-23 normal Not Available [facility] ([facility]) [address] [place], [address], 10/28/2024 08:38:53 10/27/19 25 10/28/2024 BASIC METAB OLIC PANEL (8) sodium 140 mmol/ L 134-14 4 normal Not Available [facility] ([facility]) [address] [place], [address], 10/28/2024 08:38:53 10/27/19 25 10/28/2024 BASIC METAB OLIC PANEL (8) potassium 4.4 mmol/ L 3.5-5. 2 normal Not Available [facility] ([facility]) [address] [place], [address], 10/28/2024 08:38:53 10/27/19 25 10/28/2024 BASIC METAB OLIC PANEL (8) chloride 102 mmol/ L 96-106 normal Not Available [facility] ([facility]) [address] [place], [address], 10/28/2024 08:38:53 10/27/19 25 10/28/2024 BASIC METAB OLIC PANEL (8) carbon dioxide, total 24 mmol/ L 20-29 normal Not Available [facility] ([facility]) [address] [place], [address], 10/28/2024 08:38:53 10/27/19 25 10/28/2024 BASIC METAB OLIC PANEL (8) calcium 9.8 mg/dL 8.7-10 .2 normal Not Available [facility] ([facility]) [address] [place], [address], 10/28/2024 08:38:53 10/27/19 25 10/28/2024 LIPID PANEL W/ CHOL/ HDL RATIO cholesterol, total 225 mg/dL 100-19 9 above high normal Not Available [facility] ([facility]) [address] [place], [address], 10/28/2024 08:38:53 10/27/19 25 10/28/2024 LIPID PANEL W/ CHOL/ HDL RATIO triglyceride s 252 mg/dL 0-149 above high normal Not Available [facility] ([facility]) [address] [place], [address], 10/28/2024 08:38:53 10/27/19 25 10/28/2024 LIPID PANEL W/ CHOL/ HDL RATIO HDL cholesterol 55 mg/dL >39 normal Not Available [facility]) [address] [place], [address], 10/28/2024 08:38:53 10/27/19 25 10/28/2024 LIPID PANEL W/ CHOL/ HDL RATIO VLDL cholesterol margaret 44 mg/dL 5-40 above high normal Not Available [facility] ([facility]) [address] [place], [address], 10/28/2024 08:38:53 10/27/19 25 10/28/2024 LIPID PANEL W/ CHOL/ HDL RATIO LDL chol calc ([facility]) 126 mg/dL 0-99 above high normal Not Available [facility] (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) [address] [facility], [place], [address], 10/28/2024 08:38:53 10/27/19 25 10/28/2024 LIPID PANEL W/ CHOL/ HDL RATIO T. chol/HDL ratio 4.1 ratio 0.0-4. 4 T. Chol/ HDL Ratio Men Women 1/2 Avg.R isk 3.4 3.3 Avg.R isk 5.0 4.4 2X Avg.R isk 9.6 7.1 3X Avg.R isk 23.4 11.0 Not Available [facility] ([facility]) [address] [facility], [place], [address], 10/28/2024 08:38:53 10/27/19 25 10/28/2024 HEMOG LOBIN A1C hemoglobin A1C 6.4 % 4.8-5. 6 above high normal Predi abete s: 5.7 - 6.4 Diabe koki: >6.4 Glyce fartun contr ol for adult s with diabe koki: <7.0 Not Available [facility] ([facility]) [address] [facility], [place], [address], 10/28/2024 08:38:54 04/04/20 24 03/24/2024 eran rawlsgr am, routi ne ECG, 12 leads min; inter preta tion and repor t (PROC ) No observ ation record ed. BARCODE Not Available 2023 12:35:08 10/14/19 25 10/08/2024 home sleep testi ng (PROC ) No observ ation record ed. ttrost [facility] [address], [place], [address], 10/16/2024 13:08:06 10/27/19 25 10/27/2024 elect rocar diogr am No observ ation record ed. ttrost [facility] [address] [place], [address], 10/27/2024 13:54:39 10/30/19 elect rocar diogr am No observ ation record ed. [facility] [address] [place], [address], 10/30/2024 10:27:00 11/15/19 25 10/09/2020 home sleep study No observ ation record ed. [facility]rost [facility] [address], [place], [address], 11/14/2024 13:51:16 Result Notes None recorded. Problems Name Problem SNOMED Code Status Onset Date Resolution Date Notes Provider Name and Address Organization Details Recorded Time Disorder of Achilles tendon 717518040 Active Vesna Wang MD [address], [place], [address] , [place] - [facility] 3 15:11:38 Chronic back pain 917088884 Active 2022 Devora Chin NP [address], [place], [address] , [place] [facility] 3 23:13:20 Chronic obstruct edgar pulmonar y disease 23880194 Active 2022 Devora Chin NP [address], [place], [address] , [place] - [facility] 3 23:13:35 Incontin ence of feces 93817776 Active Vesna Wang MD [address], [place], [address] , [place] - [facility] 3 15:10:53 Ex-smoke r 7179689 Active 2022 Devora Chin NP [address], [place], [address] , [place] [facility] 3 23:14:26 Genital herpes simplex 40094249 Active 2022 Devora Chin NP [address], [place], [address] , [place] [facility] 3 23:14:38 Repair of atrial septal defect with prosthes is by closed heart techniqu e 07720497 Active Vesna Wang MD [address], [place], [address] , [place] [facility] 3 15:11:06 Mixed urinary incontin ence 522591411 Active 2022 Devora Chin NP [address], [place], [address] , [place] [facility] 3 23:16:49 Disturba nce in mood 45580297 Active Vesna Wang MD [address], [place], [address] , [place] [facility] 3 15:09:31 Pain in pelvis 11918170 Active Vesna Wang MD [address], [place], [address] , [place] [facility] 3 15:11:00 Plantar fasciiti s 315230860 Active Vesna Wang MD [address], [place], [address] , [place] [facility] 3 15:11:12 Vertigo 077412467 Active 2022 Devora Chin NP [address], [place], [address] , [place] [facility] 3 23:17:40 History of hysterec kevon 431240620 Active 2022 Vesna Wang MD [address], [place], [address] , [place] [facility] 3 15:10:41 Moderate chronic obstruct edgar pulmonar y disease 697864943 Active Vesna Wang MD [address], [place], [address] , [place] [facility] 3 15:08:57 Congenit al atrial septal defect 027340666 Active Repaired in her 20s Vesna Wang MD [address], [place], [address] , [place] [facility] 3 15:12:00 Chronic pain 93594324 Active Vesna Wang MD [address], [place], [address] , [place] [facility] 5 08:49:33 Muscle pain 58532692 Completed 202212/27/2023 Muscle pain; PROBABIL ITY: 0 SENSIT IVITY: 0.0 Conf irmation : Confirme d Annota tedDispl ay: Myalgia Classifi cation: Medical Lifecycl eDateTim e: 18:27:08 +00:00 Not Available [facility] 4 17:12:26 History of repair of atrial septal defect 766918085 Active 2019 Vesna Wang MD [address], [place], [address] , [place] [facility] 5 08:49:25 Herpes simplex 64616404 Completed 201912/27/2023 Herpes simplex; PROBABIL ITY: 0 SENSIT IVITY: 0.0 Conf irmation : Confirme d cancel Reason: Annotat edDispla y: Herpes simplex Classifi cation: Medical Lifecycl eDateTim e: 15:49:28 +00:00 Not Available [facility] 4 17:12:28 Coronary arterios clerosis 41436602 Active Mild, non-obst ructing on cath 09/2024 Vesna Wang MD [address], [facility] [place], [address] , [place] [facility] 5 11:55:17 Obesity 760931332 Active Vesna Wang MD [address], [place], [address] , [place] [facility] 5 12:31:28 Impaired fasting glycemia 999959295 Active 2024 Vesna Wang MD [address], [place], [address] , [place] [facility] 5 08:52:06 Problem Notes None recorded. Procedures Surgical History Date Name Laterality Status Provider Name and Address Organization Details Recorded Time procedure on heart completed Devora Chin NP [address], [place], [address], [facility] 08/29/2023 00:00:51 hysterectomy completed Devora Chin NP [address], [place], [address], [facility] 08/29/2023 00:01:07 Imaging Results Imaging Date Name Status LastModified by Organization Details LastModified Time 03/24/2024 electrocardiogram, routine ECG, 12 leads min; interpretation and report (PROC) completed BARCODE Information not available 04/04/2024 12:35:08 10/08/2024 home sleep testing (PROC) completed [facility] [address], [place], [address], 10/16/2024 13:08:06 10/27/2024 electrocardiogram completed [facility] [address] [place], [address], 10/27/2024 13:54:39 10/30/2024 electrocardiogram completed [email or web address] [facility] [address] [place], [address], 10/30/2024 10:27:00 10/09/2020 home sleep study completed [facility] [address], [place], [address], 11/14/2024 13:51:16 Procedure Notes None recorded. Medical Equipment None Reported. Allergies Allergen ID Allergen Name Allergen Category Reaction Reaction Severity Criticality Documentation Date Start Date Code Code System Note Provider Name and Address Organization Details Recorded Time 810175 No Allergy Informati on Available Not available Not available Not available Not available 12/27/2023 61696 UNK Comme nt: React ion Class : Aller gy; Aparna Faby null, [facility] 14:57:57 358323 phentermi ne medicatio n other Not available Not available 07/03/2024 8152 RxNorm oral blist ers Vesna Wang MD [address], [place], [address], [facility] 09:58:35 Medications Name Sig Start Date Stop Date Status Note LastModified by Organization Details LastModified Time Imodium 2 mg capsule Take by oral route. 10/01 completed Not Available Not Available Not Available prednison e 10 mg tablet TAKE DIRECTED : 6 TABS DAY 1,5 TABS DAY 2, 4 TABS DAY 3, 3 TABS DAY 4, 2 TABS DAY 5, 1 TAB DAY 6 10/24 completed Not Available Not Available Not Available doxycycli ne hyclate 100 mg capsule 1 cap(s) Oral bid,x7 days 10/24 completed Not Available Not Available Not Available azithromy rose 250 mg tablet Take 2 tabs PO on day #1. Then take 1 tab PO daily on day #2-5 05/08 completed StopType : Physicia n Stop Rodolfo Sánchez umber: [id number] T otalRefi lls: 0 Consta ntIndica tor: Yes CSAS chedule: 0 active _status_ dt_tm: 10:16:35 AM Not Available Not Available Not Available valacyclo vir 1 gram tablet TAKE ONE TABLET BY MOUTH ONCE DAILY 05/01 completed StopType : Physicia n Stop Rodolfo Sánchez umber: [id number] C onstantI ndicator : Yes CSAS chedule: 0 active _status_ dt_tm: 02/09/2022 9:24:56 AM Not Available Not Available Not Available prednison e 20 mg tablet 1 tab(s) Oral daily,In str:Take 3 tabs PO x 4 days. Then take 2 tabs PO x 4 days. Then take 1 tab PO x 4 days. Then take 1/2 tab PO x 4 days. 03/12 completed StopType : Physicia n Stop Rodolfo Sánchez umber: [id number] T otalRefi lls: 0 Consta ntIndica tor: Yes CSAS chedule: 0 active _status_ dt_tm: 03/12/2023 1:41:49 PM Not Available Not Available Not Available topiramat e 25 mg tablet TAKE TWO TABLETS BY MOUTH ONCE DAILY 10/27 completed Not Available Not Available Not Available phentermi ne 37.5 mg tablet Take 1 tablet every day by oral route for 30 days. 09/04 completed Not Available Not Available Not Available sulfameth oxazole 800 mg-trimet hoprim 160 mg tablet TAKE 1 TABLET BY MOUTH TWICE A DAY FOR 5 DAYS 10/24 completed Not Available Not Available Not Available ketorolac 30 mg/mL (1 mL) injection solution 11/01 completed StopType : Physicia n Stop Rodolfo Sánchez umber: [id number] N extDoseD ate: 11:55:00 AM Const antIndic ator: No CSASc hedule: 0 active _status_ dt_tm: 11:55:27 AM Not Available Not Available Not Available estradiol 1 mg tablet TAKE 1 TABLET BY MOUTH EVERY DAY 10/24 completed Not Available Not Available Not Available cephalexi n 500 mg capsule TAKE 1 CAPSULE BY MOUTH EVERY 12 HOURS 09/04 completed Not Available Not Available Not Available Flovent 110 mcg/actua tion aerosol inhaler 2 puff(s) Inhale bid 06/20 completed StopType : Physicia n Stop Rodolfo Toniarandal Sánchez umber: [id number] T otalRefi lls: 3 Consta ntIndica tor: Yes CSAS chedule: 0 active _status_ dt_tm: 10:16:35 AM Not Available Not Available Not Available hydrocort isone 2.5 % topical cream APPLY 2 TIMES A DAY NEEDED TO FACE RASH 10/01 completed Not Available Not Available Not Available hydroxyzi ne HCl 25 mg tablet 1 tab(s) Oral qid,PRN: for itching, Instr:Ma y cause drowsine ss 03/12 completed PRNInstr uctions: for itching StopType : Physicia n Jeffrey Reynolds Toniarandal darnellBenito umber: [id number] S cheduled PRN: Yes Tota lRefills : 0 Consta ntIndica tor: No CSASc hedule: 0 active _status_ dt_tm: 03/12/2023 1:41:49 PM Not Available Not Available Not Available albuterol 90 mcg/actua tion aerosol inhaler Inhale 2 puffs every day by inhalati on route as needed. 10/01 completed Not Available Not Available Not Available ergocalci ferol (vitamin D2) 1,250 mcg (50,000 unit) capsule Take 1 cap PO once per week for 12 weeks. 10/01 completed StopType : Soft Stop Rodolfo Gregory [facility]Benito umber: [id number] S cheduled PRN: No Total Refills: 0 Consta ntIndica tor: Yes CSAS chedule: 0 active _status_ dt_tm: 0 11:59:48 AM Not Available Not Available Not Available levofloxa rose 750 mg tablet TAKE 1 TABLET BY MOUTH EVERY DAY 10/24 completed Not Available Not Available Not Available albuterol sulfate HFA 90 mcg/actua tion aerosol inhaler INHALE 2 PUFFS EVERY 4 HOURS BY INHALATI ON ROUTE NEEDED active Not Available Not Available No t Available fluticaso ne propionat e 50 mcg/actua tion nasal spray,manpreet pension [place] 1 spray every day by intranas al route for 10 days. active Not Available Not Available No t Available amoxicill in 875 mg-potass ium clavulana te 125 mg tablet Take 1 tablet every 12 hours by oral route for 10 days. 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 active Not Available Not Available No t Available rosuvasta tin 20 mg tablet TAKE 1 TABLET BY MOUTH NIGHTLY active Not Available Not Available No t Available Spiriva with HandiHale r 18 mcg and inhalatio n capsules 1 cap(s) Inhale daily,x9 0 days 04/21 completed Duration : 90 Durat ionUnit: days Sto pType: Physicia n Stop Rodolfo gIdentif icationN umber: [id number] T otalRefi lls: 3 Consta ntIndica tor: Yes CSAS chedule: 0 active _status_ dt_tm: 2 10:31:45 AM Not Available Not Available Not Available duloxetin e 20 mg capsule,d elayed release TAKE TWO CAPSULES BY MOUTH ONCE DAILY active Not Available Not Available No t Available Cymbalta 60 mg capsule,d elayed release 08/11 completed Duration : 90 Durat ionUnit: days Sto pType: Hard Stop Rodolfo gIdentif icationN umber: [id number] T otalRefi lls: 3 Consta ntIndica tor: Yes CSAS chedule: 0 active _status_ dt_tm: 05/18/2022 12:17:16 PM Not Available Not Available Not Available Cymbalta 30 mg capsule,d elayed release 08/11 completed Duration : 90 Durat ionUnit: days Sto pType: Hard Stop Rodolfo gIdentif icationN umber: [id number] T otalRefi lls: 3 Consta ntIndica tor: Yes CSAS chedule: 0 active _status_ dt_tm: 9:44:52 AM Not Available Not Available Not Available ascorbic acid (vitamin C) 10/01 completed Not Available Not Available Not Available Vitamin C 10/01 completed StopType : Soft Stop Rodolfo gIdentif icationN umber: [id number] T otalRefi lls: 0 Consta ntIndica tor: Yes CSAS chedule: 0 active _status_ dt_tm: 11:33:37 AM Not Available Not Available Not Available potassium acetate active Not Available Not Available Not Available ergocalci ferol (vitamin D2) 10/01 completed Not Available Not Available Not Available valacyclo vir 12/31 completed StopType : Physicia n Stop Roodlfo Sánchez umber: [id number] T otalRefi lls: 0 Consta ntIndica tor: Yes CSAS chedule: 0 active _status_ dt_tm: 0 12:33:09 PM Not Available Not Available Not Available magnesium chloride active Not Available Not Available Not Available Imodium 10/01 completed StopType : Soft Stop Rodolfo patrickN umber: [id number] T otalRefi lls: 0 Consta ntIndica tor: Yes CSAS chedule: 0 active _status_ dt_tm: 3 11:33:37 AM Not Available Not Available Not Available budesonid e-formote rol HFA 160 mcg-4.5 mcg/actua tion aerosol inhaler 2 puffs BID. May also use 2 puffs every 4-6 hours prn wheeze or shortnes s of breath. 10/24 completed pulmonol ogist disconti nued Not Available Not Available Not Available Align (B.infant is) 4 mg capsule Take 1 capsule every day by oral route. active Not Available Not Available No t Available Adacel (Tdap Adolesn/A dult)(PF) 2 Lf-(2.5-5 -3-5)-5 Lf/0.5 mL IM syringe 09/25 completed StopType : Physicia n Stop Rodolfo Sánchez umber: [id number] N extDoseD ate: 0 1:07:00 PM Const antIndic ator: No CSASc hedule: 0 active _status_ dt_tm: 0 1:20:16 PM Not Available Not Available Not Available Align (B.infant is) 10/01 completed StopType : Soft Stop Rodolfo Sánchez umber: [id number] T otalRefi lls: 0 Consta ntIndica tor: Yes CSAS chedule: 0 active _status_ dt_tm: 06/20/20 11:29:23 AM Not Available Not Available Not Available Dulera 200 mcg-5 mcg/actua tion HFA aerosol inhaler Inhale 2 puffs twice a day by inhalati on route. 10/24 completed Not Available Not Available Not Available Dulera 100 mcg-5 mcg/actua tion HFA aerosol inhaler Inhale 2 puffs twice a day by inhalati on route for 90 days, for breathin g. active Not Available Not Available No t Available Chantix Starting Month Box 0.5 mg (11)-1 mg (42) tablets in dose pack Take 1 tab PO daily accordin g to package directio ns 09/08 completed Disconti nueDate: 09/08/20 9:26:12 AM Disco ntinueTy pe: User Manual DC StopT ype: Physicia n Stop Rodolfo roberttionN umber: [id number] T otalRefi lls: 0 Consta ntIndica tor: Yes CSAS chedule: 0 active _status_ dt_tm: 0 1:20:16 PM Not Available Not Available Not Available lidocaine 5 % topical ointment 1 patch(es ) Topical daily,In str:sarah ve patches after 12 hours 05/01 completed StopType : Physicia n Stop Rodolfo roberttionBenito umber: [id number] S cheduled PRN: No Total Refills: 0 Consta ntIndica tor: Yes CSAS chedule: 0 active _status_ dt_tm: 1 2:16:49 PM Not Available Not Available Not Available Paxlovid 300 mg (150 mg x 2)-100 mg tablets in a dose pack TAKE 3 TABLETS BY MOUTH TWICE DAILY ACCORDIN G TO PACKAGE DIRECTIO NS 10/01 completed Not Available Not Available Not Available fezolinet ant 45 mg tablet Take 1 tablet every day by oral route. active Not Available Not Available No t Available fezolinet ant 10/01 completed StopType : Soft Stop Rodolfo robetrtionN umber: [id number] T otalRefi lls: 0 Consta ntIndica tor: Yes CSAS chedule: 0 active _status_ dt_tm: 08/06/20 23 10:43:48 AM Not Available Not Available Not Available Vitals Date Recorded Body height Body mass index (BMI) Body weight Body temperature Oxygen saturation Oxygen saturation in Arterial blood by Pulse oximetry Heart rate Systolic blood pressure Diastolic blood pressure Provider Name and Address Organization Details Last Updated DateTime 4 180.34 cm 24.5 kg/m2 03207.2 6 g 97.7 [degF] 95 % 95 % 87 /min 109 mm[Hg] 69 mm[Hg] Mikki Werneronald [place] [facility] 4 17:35:50 Date Recorded Body height Body mass index (BMI) Body weight Body temperature Heart rate Respiratory rate Oxygen saturation Oxygen saturation in Arterial blood by Pulse oximetry Systolic blood pressure Diastolic blood pressure Provider Name and Address Organization Details Last Updated DateTime 4 180.34 cm 24.7 kg/m2 26822.8 5 g 98.7 [degF] 90 /min 16 /min 95 % 95 % 116 mm[Hg] 74 mm[Hg] Venancio Lawler [place] [facility] 4 09:44:38 Date Recorded Body height Body mass index (BMI) Body weight Body temperature Oxygen saturation Oxygen saturation in Arterial blood by Pulse oximetry Heart rate Systolic blood pressure Diastolic blood pressure Provider Name and Address Organization Details Last Updated DateTime 4 180.34 cm 27.5 kg/m2 62214.7 g 97 [degF] 95 % 95 % 89 /min 131 mm[Hg] 73 mm[Hg] Aparna Hobbs [place] [facility] 4 15:07:09 Date Recorded Body height Body mass index (BMI) Body weight Body temperature Heart rate Oxygen saturation Oxygen saturation in Arterial blood by Pulse oximetry Systolic blood pressure Diastolic blood pressure Provider Name and Address Organization Details Last Updated DateTime 5 180.34 cm 27.5 kg/m2 57128.7 g 98 [degF] 81 /min 97 % 97 % 136 mm[Hg] 84 mm[Hg] Batsheva Arguelles [place] [facility] 5 11:36:10 Date Recorded Body height Body mass index (BMI) Body weight Body temperature Oxygen saturation Oxygen saturation in Arterial blood by Pulse oximetry Heart rate Systolic blood pressure Diastolic blood pressure Provider Name and Address Organization Details Last Updated DateTime 5 180.34 cm 27.3 kg/m2 29599.1 g 97.5 [degF] 98 % 98 % 80 /min 129 mm[Hg] 78 mm[Hg] Batsheva Arguelles [place] - [facility] 5 11:33:13 Social History Question Answer Notes LastModified by Organizat ion Details LastModified Time Tobacco Smoking Status Former Smoker Devora Chin NP [address], [place], [address], [place] - [facility] 08/29/2023 00:04:21 What Is Your Level Of Alcohol Consumption? None Information not available 08/29/2023 What Is Your Level Of Caffeine Consumption? Moderate [email or web address] Information not available 08/29/2023 In The 14 Days Before Symptom Onset, Have You Had Close Contact With A Laboratory-confir med COVID-19 While That Case Was Ill? No [email or web address] Information not available 10/24/2023 Have You Been To An Area Known To Be High Risk For COVID-19? No [email or web address] Information not available 10/24/2023 When Did You Quit Smoking? 1-5yearssinc elastcigaret te 08/11/2020 Information not available 08/29/2023 GENERAL HEALTH -- In General, I Describe My Health As: Good [email or web address] Information not available 04/07/2024 GENERAL HEALTH -- Currently, How Would You Rate Your Quality Of Life? Very Good [email or web address] Information not available 04/07/2024 PURPOSE -- For The Most Part, I Am Satisfied With The Balance Between My Work Life And Personal Life. Agree [email or web address] Information not available 04/07/2024 PURPOSE -- In Most Ways My Life Is Close To My [place]. 6 - Agree [email or web address] Information not available 04/07/2024 PURPOSE -- The Conditions Of My Life Are Excellent. 6 - Agree [email or web address] Information not available 04/07/2024 PURPOSE -- I Am Satisfied With My Life. 6 - Agree [email or web address] Information not available 04/07/2024 PURPOSE -- So Far I Have Gotten The Important Things I Want In Life. 6 - Agree [email or web address] Information not available 04/07/2024 PURPOSE -- If I Could Live My Life Over, I Would Change Almost Nothing. 4 - Neither Agree Nor Disagree [email or web address] Information not available 04/07/2024 STRESS -- In The Last Month, How Often Have You Been Upset Because Of Something That Happened Unexpectedly? 1 - Almost Never [email or web address] Information not available 04/07/2024 STRESS -- In The Last Month, How Often Have You Clark That You Were Unable To Control The Important Things In Your Life? 1 - Almost Never [email or web address] Information not available 04/07/2024 STRESS -- In The Last Month, How Often Have You Clark Nervous And Stressed? 1 - Almost Never [email or web address] Information not available 04/07/2024 STRESS -- In The Last Month, How Often Have You Clark Confident About Your Ability To Handle Your Personal Problems? 4 - Very Often [email or web address] Information not available 04/07/2024 STRESS -- In The Last Month, How Often Have You Clark That Things Were Going Your Way? 3 - Fairly Often [email or web address] Information not available 04/07/2024 STRESS -- In The Last Month, How Often Have You Found That You Could Not [place] With All The Things That You Had To Do? 4 - Very Often [email or web address] Information not available 04/07/2024 STRESS -- In The Last Month, How Often Have You Been Able To Control Irritations In Your Life? 4 - Very Often [email or web address] Information not available 04/07/2024 STRESS -- In The Last Month, How Often Have You Clark That You Were On Top Of Things? 3 - Fairly Often [email or web address] Information not available 04/07/2024 STRESS -- In The Last Month, How Often Have You Been Angered Because Of Things That Happened That Were Outside Of Your Control? 1 - Almost Never [email or web address] Information not available 04/07/2024 STRESS -- In The Last Month, How Often Have You Clark Difficulties Were Piling Up So High That You Could Not Overcome Them? 1 - Almost Never [email or web address] Information not available 04/07/2024 SLEEP -- Select All That Apply Regarding Your Sleep I Have A Hard Time Falling Asleep Or Staying Asleep, I Have Been Told Or Know That I Snore [email or web address] Information not available 04/07/2024 SLEEP -- How Many Hours Of Sleep Do You Get On Average Each Night? 7 Hours Or More [email or web address] Information not available 04/07/2024 SLEEP -- I Usually Wake Up Feeling Rested. Agree [email or web address] Information not available 04/07/2024 Nutrition -- What Is The Average Number Of Times Per Week You Dine Out Including In Restaurant, Carry Out, Or Food Delivery? 1 Or Less/None [email or web address] Information not available 04/07/2024 Nutrition -- On Average, How Many 8 Oz. Glasses Of Water Do You Drink Each Day? 3 To 5 [email or web address] Information not available 04/07/2024 Nutrition -- How Often Do You Consume Sugary Food/drinks? Examples Are Dessert, Candy Or Sweetened Drinks (juice, Sweetened Coffee, Soda) 0-1 Days A Week [email or web address] Information not available 04/07/2024 Nutrition -- How Often Do You Eat 5 Or More Fruits/vegetable Servings A Day? 6-7 Days A Week [email or web address] Information not available 04/07/2024 Physical Activity -- How Often Do You Exercise? 4-5 Days Per Week [email or web address] Information not available 04/07/2024 Physical Activity -- On Average, How Many Minutes Do You Spend Doing Aerobic Exercise Weekly (walking, Running, Biking, And Other Aerobic Activities)? 75-120 Minutes A Week [email or web address] Information not available 04/07/2024 Physical Activity -- On Average, How Many Times A Week Do You Do Resistance Or Strengthening Exercises? 1 Or Less Days [email or web address] Information not available 04/07/2024 Physical Activity -- How Many Days A Week Do You Do Stretching Exercises? 3 Days [email or web address] Information not available 04/07/2024 Tobacco -- Please Indicate The Statement That Fits Your Current Use Of Tobacco (cigarettes, Ecigarettes/vapin g, Smokeless Tobacco, Cigars, Pipes, Light Cigarettes)? I Quit Using Tobacco More Than 12 Months Ago [email or web address] Information not available 04/07/2024 Tobacco -- If You Currently Use Tobacco, On Average; How Many Cigarettes, Cigars, Etc. Per Day? 0 [email or web address] Information not available 04/07/2024 TOBACCO -- If You Use Tobacco, How Long Have You Been Using Tobacco? (in Years) 0 [email or web address] Information not available 04/07/2024 RISK BEHAVIOR -- How Often Do You Wear A Seat Belt In A Motor Vehicle? Always [email or web address] Information not available 04/07/2024 RISK BEHAVIOR -- Do You Have A Smoke Detector In Your Home? Yes [email or web address] Information not available 04/07/2024 RISK BEHAVIOR -- Do You Have A Carbon Monoxide Detector In Your Home? Yes [email or web address] Information not available 04/07/2024 RISK BEHAVIOR -- How Often Do You Protect Your Skin From Sun Exposure When Outside (for Example, Sunscreen With A SPF 15 Or Higher And/or Protective Clothing)? Some Of The Time [email or web address] Information not available 04/07/2024 RISK BEHAVIOR -- How Often Do You Have A Drink Containing Alcohol? Monthly Or Less [email or web address] Information not available 04/07/2024 RISK BEHAVIOR -- How Many Drinks Containing Alcohol Do You Have On A Typical Day When You Are Drinking? 1 Or 2 [email or web address] Information not available 04/07/2024 RISK BEHAVIOR -- In The Past Year, How Often Have You Used An Illegal Drug Or A Prescription Drug For A Non-medical Reason? Never [email or web address] Information not available 04/07/2024 READINESS TO CHANGE -- Improve My Overall Health Recently Started This Change [email or web address] Information not available 04/07/2024 READINESS TO CHANGE -- If There Was One Thing You Could Work On To Improve The Way You Feel And Function What Would You Choose Better Control Of Bowel And Urine Discharge. [email or web address] Information not available 04/07/2024 FINANCIAL -- I Could Handle A Major Unexpected Expense 2 - Somewhat [email or web address] Information not available 04/07/2024 FINANCIAL -- I Am Securing My Financial Future Somewhat [email or web address] Information not available 04/07/2024 FINANCIAL -- I Have Money Left Over At The End Of The Month 1 - Very Well [email or web address] Information not available 04/07/2024 SOCIAL DETERMINANTS -- I Have A Close Friend, Family Member Or Support System I Can Talk To About Important Issues. Agree [email or web address] Information no t available 04/07/2024 SOCIAL DETERMINANTS -- How Often Do You Feel Lonely? Rarely [email or web address] Information not available 04/07/2024 SOCIAL DETERMINANTS -- During The Past Year, Have You Worried About The Following? Select All That Apply. None Of These Worries Apply [email or web address] Information not available 04/07/2024 How Often Do You Have Six Or More Drinks On One Occasion? Never [email or web address] Information not available 04/07/2024 What Was The Date Of Your Most Recent Tobacco Screening? 10/27/2024 [email or web address] Information not available 10/27/2024 How Many Years Have You Smoked Tobacco? 37 1 PPD. Unknown Length Of Time [email or web address] Information not available 08/29/2023 Do You Or Have You Ever Used Any Other Forms Of Tobacco Or Nicotine? No Information not available 08/29/2023 Sex: Unknown Functional Status None recorded. Mental Status None recorded. Family History Relationship Description Onset Age of this Age Resolved Age Notes LastModified by Organization Details LastModified Time Mother Malignant tumor of breast [email or web address] Not available 08/28 23:23:33 Mother Malignant neoplastic disease [email or web address] Not available 08/28 23:24:10 Maternal Grandmother Malignant neoplastic disease [email or web address] Not available 08/28 23:24:10 Maternal Grandmother Hyperlipidem ia eleinicke Not available 2024 11:27:14 Maternal Grandmother Parkinson's disease [email or web address] Not available 2024 11:27:14 Father Depressive disorder [email or web address] Not available 08/28 23:24:24 Paternal Grandmother Diabetes mellitus [email or web address] Not available 08/28 23:24:53 Paternal Grandmother Parkinson's disease eleinicke Not available 2024 11:27:14 Paternal Grandfather Transient cerebral ischemia eleinicke Not available 2024 11:27:14 Notes:Father: High blood pre ssure, Depression Grandfather (M): Glaucoma Grandfather(P): TIA Grandmother (M): Hyperlipidaemia, Cancer, Parkinson disease Grandmother (P): Diabetes mellitus, High blood pressure, Parkinson disease Mother: CA - Breast cancer, Cancer Medical History No medical history recorded. Gynecological HistoryNo gynecological history recorded. Obstetrics History GPAL:G 0 P 0 0 0 0 Immunizations Vaccine Type Date Status Note Provider Nam e and Address Organization Details Recorded Time influenza, unspecified formulation 3 luci Chin NP [address], [place], [address], [place] - [facility] 08/28/2023 23:11:58 Tdap 0 luci Chin NP [address], [place], [address], [place] - [facility] 08/28/2023 23:12:16 influenza, unspecified formulation 0 completed Not Available [facility] 12/27/2023 17:42:31 influenza, unspecified formulation 2 completed Not Available [facility] 12/27/2023 17:42:32 Influenza, split virus, trivalent, PF 4 completed Carol Sal null, [place] - [facility] 07/23/2024 16:18:01 zoster recombinant 5 completed Nathalyalbert Arguelles null, [place] - [facility] 10/27/2024 12:47:35 Past Encounters Encounter ID Performer Location Encounter Start Date Encounter Closed Date Diagnosis/Indication Diagnosis SNOMED-CT Code Diagnosis ICD10 Code Diagnosis Note [id number] MD [facility] [address] [place] [address] 08/29/2023 14:04:19 08/29/2023 15:26:10 Chronic obstructive pulmonary disease 90636461 J44.9 CXR looks unchanged, will send to pulm for opinion and hopefully they'll find a daily controller she can tolerate long-term. Congenital atrial septal defect 038487544 Q21.10 I'll look into connection w/COPD [id number] Vesna Wang MD [facility] [address] [place] [address] 10/24/2023 09:47:37 11/01/2023 06:31:12 Recurrent sinusitis 349427292 J32.9 Labs as below for underlying cause. History of diabetes mellitus 893515067 Z86.39 Body mass index 25-29 - overweight 122647355 Z68.26 We discussed role of healthy nutrition and exercise. She has some good habits but knows she has room for improvemen t. Offered wellness referral and she would like to pursue this AFTER season is over.We discussed medication options including risk/benef it/side effects of each. She would like to try phentermin e + topirimate - we did discuss risk of cardiac side effects so she will call with any chest pain, palpitatio ns, etc. F/u in 1 month, sooner if needed. Chronic ob structive pulmonary disease 92660523 J44.9 [id number] MD [facility] [address] [place] [address] 01/09/2024 11:28:01 01/10/2024 09:59:15 Chronic obstructive pulmonary disease 85594006 J44.9 With frequent infections /exacerbat ions. She does need to get started on a controller inhaler and she is agreeable to this. Needs aggressive preventati ve control. We'll get her back on dulear and f/u in 1 mo. Allergic rhinitis 311455 04 J30.9 Continue flonase daily, add daily zyrtec/cla ritin. Needs aggressive preventati ve control given her frequent infections /exacerbat ions Body mass index 25-29 - overweight 451642714 Z68.26 Continue healthy habits. Resume topamax + phentermin e. F/u in 1 mo for EKG, weight, etc. F/u in 1 month, sooner if needed. [id number] MD Kenny [facility] [address] [place] [address] 02/06/2024 15:45:26 02/07/2024 09:05:27 Chronic obstructive pulmonary disease 49472081 J44.9 Doing much better with dulera; continue this Allergic rhinitis 388676 J30.9 Continue flonase, zyrtec/cla ritin. Needs aggressive preventati ve control given her frequent infections /exacerbat ions Body mass index 25-29 - overweight 577898950 Z68.26 Continue healthy habits. Continue topamax + phentermin e. F/u in 1 month, sooner if needed. [id number] MD Kenny [facility] [address] [place] [address] 03/05/2024 13:57:13 03/06/2024 08:40:07 Chronic obstructive pulmonary disease 81020335 J44.9 Doing much better with dulera; continue this Allergic rhinitis 241016 J30.9 Continue flonase, zyrtec/cla ritin. Needs aggressive preventati ve control given her frequent infections /exacerbat ions Body mass index 25-29 - overweight 430228450 Z68.26 Continue healthy habits. Continue topamax + phentermin e. F/u in 1 month, sooner if needed. If EKG still stable at that point, can slow down f/u [id number] Vesna Wang MD [facility] [address] [place] [address] 03/24/2024 17:26:13 03/25/2024 09:21:28 Chronic obstructive pulmonary disease 53174838 J44.9 Doing much better with dulera; continue this. Can decrease back down to once per day if abnormal oral sensation persists. Allergic rhinitis 452399 04 J30.9 Continue flonase, zyrtec/cla ritin. Needs aggressive preventati ve control given her frequent infections /exacerbat ions Body mass index 25-29 - overweight 583698446 Z68.26 Continue healthy habits. Continue topamax + phentermin e. F/u in 3 mo, sooner if necessary. [id number] Venancio [facility] [address] [place] [address] 06/09/2024 09:40:37 06/09/2024 10:51:01 Dysuria 92087507 R30.0 UA normal today. Chronic ob structive pulmonary disease 21396723 J44.9 NOT discussed todayDoing much better with dulera; continue this. Can decrease back down to once per day if abnormal oral sensation persists. Allergic rhinitis 179058 04 J30.9 NOT discussed todayConti nue flonase, zyrtec/cla ritin. Needs aggressive preventati ve control given her frequent infections /exacerbat ions Body mass index 25-29 - overweight 079014992 Z68.26 Doing great with healthy habits. We discussed if renal function normal, OK to resume phentermin e + topamax if desired. Low back pain 114956764 M54.50 UA normal, check BMP for renal function. Could consider US if needed. [id number] Eli Priest, DIANA [facility] [address] [place] [address] 09/04/2024 14:55:37 09/05/2024 12:46:30 Allergic rhinitis 34968574 J30.9 refilled medication Chronic ob structive pulmonary disease 40063252 J44.9 refilled medication Acute maxi llary sinusitis 12751062 J01.00 May continue FlonaseRes tart albuterol MDI for the next 5-7 dayscontin ue Duleramay use over the counter Astepro for congestion Call if you start with a fever, symptom worsen or do not improve [id number] MD La[facility] [address] [place] [address] 10/01/2024 11:26:30 10/03/2024 10:33:46 Snoring 43118846 R06.83 With marked desats while sleeping during hospitaliz ation. Sleep study pending Coronary arteriosclerosis 25231485 I25.10 Mild and non-obstru cting on cath last week. Continue ASA and will put her on lower-dose statin due to desire to minimize meds and concerns for pain Obesity 783832951 E66.9 Adverse effects on phentermin e and now with known mild CAD. Adverse effects on wellbutrin in the past. She has good plans for nutritiona l changes and increased exercise as detailed in HPI. F/u next month at physical. Health see linda behavior 258276120 Z76.89 [id number] Vesna Wang MD [facility] [address] [place] [address] 10/27/2024 11:24:40 10/28/2024 11:24:01 Coronary arteriosclerosis 99877331 I25.10 Mild and non-obstru cting on cath last week. She plans to get back on her rosuvastat in and ASA.New baseline EKG today Obesity 922644896 E66.9 Not a good candiate for pharmacoth erapy. Continue good work on lifestyle management Adult [facility] th examination 878420239 Z00.00 Discussed ongoing efforts on nutrition/ exercise.M ammogram and Pap are UTD with gynColonos copy is UTD 2021. Due 5-10 years.Labs as belowShing sheridan #1 today Chronic ob structive pulmonary disease 03090581 J44.9 Stable on dulera; continue this. Can decrease back down to once per day if abnormal oral sensation persists. With her mildly abnormal sleep study and concerns for evening hypoxia, will refer back to Pulm for 2nd opinion Chronic pain 68653239 G8 9.29 Continue cymbalta Ex-smoker 6381864 Z87.89 1 PCV done elsewhere. 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 We discussed low likelihood of dangerous/ damaging cause of her pain and that she can/should GRADUALLY increase her activity level to actually help with this. Health Concerns Section Related Observation LastModified by Organization Detai ls LastModified Time None Recorded Concern Status LastModified by Organization Details LastModified Time None Recorded Advance Directives Directive None Recorded Payers Encounter Date Sequence Insurance Name Policy Number Policy Benson Covered Member ID Benson Member ID Guarantor Name 03/24/2024 1 [employer] - [employer] [id number] Antony D Allison [id number] Cesilia A Allison 06/09/2024 1 [employer] - [employer] [id number] Antony D Allison [id number] Cesilia A Allison 09/04/2024 1 [employer] - [employer] [id number] Antony D Allison [id number] Cesilia A Allison 10/01/2024 1 [employer] - [employer] O[employer] - [employer] [id number] Antony D Allison [id number] Cesilia A Allison 10/27/2024 1 [employer] - [employer] [id number] Antony D Allison [id number] Cesilia A Allison Notes Date Note Type Note Provider Name and Address Organization Details Recorded Time 03/24/2024 text/html 58yo female here to follow up on --Weight - Taking phentermine and topamax. She's occasionally forgetting the topamax because she forgets evening doses.She is tolerating this well without any side effects of palpitations, tremors, insomnia. Does have some constipation, not too uncomfortable. Lots of fruit/veg, but maybe not as much hydration.Exercising, walking daily, 2 miles daily, way more active during the day.Has been feeling down this month because she had to put her dog down - they've been through a lot together. --COPD - Resumed dulera inhaler, she is very happy with results of this. Does sometimes forget evening doses as above. It gives her a fat tongue sensation. Worried about dental implications.Previousl y followed by Pulm but not a fan. --Allergies - singulair + flonase + claritin Former smoker Vesna Wang MD [address], [place], [address], [place] [facility] 03/24/2024 18:07:27 06/09/2024 text/html 58 yo female wit h COPD here with concerns for dysuria and urinary frequency along with back pain - back pain actually started a few weeks prior to the urinary frequency. Went to UC and UA was positive for blood and looked like UTI. Treated with keflex but then culture was negative.Urinary symptoms have resolved but back pain persists. Seems really different from her usual back pain.She has some concerns for dehydration. Does not drink much water.No LE edema She did stop her phentermine and topamax because she was worried that they might be playing a role in symptoms. She's been doing great with diet and exercise -Wonders if grapes could play a role - eating a pound per day. Breathing seems normal. Continues dulera and happy with this. Previously followed by Pulm but not a fan. Former smoker Venancio Lawler k[place], [place] - [facility] 06/09/2024 10:09:28 09/04/2024 text/html Patient here tod ay for head and chest congestion. Has been on flonase MDI and claritin. Denies fever chills or body aches. and son have the same symptoms. Grandson a double ear infection. All started 3-4 weeks ago. Cough is productive with green mucous. Eli Priest NP [address], [place], [address], [place] [facility] 09/04/2024 16:15:46 10/01/2024 text/html 58 yo female her e for f/u on --Recent hospitalization for chest heaviness; onset after pushing/moving a file cabinet. Symptoms ongoing for a week, progressed to radiating to axilla, nausea, then went to ER. Stress test showed lateral wall motion abnormality. Cath showed mild non-obstructing disease.Started on crestor 20mg and ASA 81. She has not yet started the statin; does not want to.TGs and BPs were high.Her symptoms do persist somewhat. Not exertional.She did have substantial desats while sleeping - to the 80s. She does snore loudly. --COPD - ray, previously followed by pulmonary but did not like that providerHistory of adverse effects on spiriva and symbicortContines to have frequent bouts of bronchitis - Augmentin in August, Covid in the fall --Weight - phentermine gave oral blisters. (had also been on topamax)Focus on baked foods,Candy is a weakness - always craves something sweet, after meals, at work...trying to think of subs - homemade fruit salad, soila-covered raisins, almonds...Doing great with diet and exercise. Ordered a treadmill, plans for 30 minutes daily - she knows that this works, her nieces lost weight this wayAdverse effects on wellbutrin in the past - flattened affect NOT discussed today--Chronic pain - on duloxetine --GI - is she still taking align and/or imodium? Book Trimmer put her on veozah for hot flashes in the past, ?still taking this Former smoker Vesna Wang MD [address], [place], [address], [place] [facility] 10/01/2024 12:32:56 10/27/2024 text/html 58 yo female her e for f/u on --CAD - mild non-obstructing disease on cath fall 2023. Now on ASA 81mg and rosuvastatin 5mg due to concerns for pain. She did not end up taking the rosuvastatin and actually also stopped the ASA because she had some leg/foot swelling as below. These did not improve when she stopped the medication. --Leg cramps and foot pain - calves, R>L. Not exertional. Aches, really mostly at night when she's sleeping. No spasm. Feels like her tendons are tight. She does have a long history of this, has had EMG/NCS in the past - normal. Has tried a variety of expensive tennis shoes and inserts. --Concern for VIJAY while hospitalized - SpO2 down to the 80s. Sleep study showed only mild VIJAY. She felt like her previous optometry assistant did not take her concerns very seriously. (annemarie at [facility]) - we'll make a new referral --COPD - dulera - doing well since her most recent exacerbation in august. Previously followed by pulmonaryHistory of adverse effects on spiriva and symbicort --Weight - Working on diet and exercise, trying to think of substitutions for candy/sweets. Ordered a treadmill. Plans for 30min daily. but had trouble with ankle swelling. Wants to try this againAdverse effects on phentermine and wellbutrin --Chronic pain - on duloxetine --Impaired fasting glucose - Book Trimmer put her on veozah for hot flashes in the past, but she stopped this due to being ineffective. Health MaintenanceFormer smoker - quit 08/2020. CT with some tiny nodules 12/2020. Stable 04/2022.Alcohol: none, h/o heavy drinking in the past.Diet: vegetables daily, cooks at home. Stopped soda, decreased sugar intake, but does eat a lot of candy, craves sweetsMammogram: last year, diagnostic. Follows with gynPap:H/o hysterectomy. Follows with gynColonoscopy: 2021Td: 09/2019Shingles: has not had, will considerPCV: done Vesna Wang MD [address], [place], [address], [place] [facility] 10/27/2024 12:18:03 OBGyn Episode No OBEpisode recorded.
--- OUTSIDE RECORDS SUMMARY | 2024-11-27 19:20 | XMS_ITS | CONTINUITY OF CARE DOCUMENT ---
Author Name christiano lawsonolivia Address Unknown Organization [facility] Address [address] [place] [address] Phone [phone] Care Team Providers Care Benefits Technician Name Role Phone Morgan SILVA, Yaritza Unavailable [phone] Katrina Guillaume Unavailable PROBLEMS Condition Status Date Provider Notes Cardiology examination completed 0 - Yaritza Mora MD Atrial septal defect (ASD) s /p repair at Age 22 active Yaritza Mora MD Palpitations active Yaritza Mora MD Tobacco use, quit active Yaritza Mora MD COPD active Yaritza Mora MD ENCOUNTERS Date Type Provider Location Encounter Diag nosis - In-person encounter Office Visit Yaritza Mora MD [facility] Office Cardiology examinationAtrial septal defect (ASD) s/p repair at Age 22PalpitationsTobacco use, quitCOPD VITAL SIGNS Date Observation Value Provider Body Mass Index (Ratio) 25.97 kg/m2 Ken Mora MD blood pressure, diastolic 65 mm[Hg] Fe tisha uCrtis blood pressure, systolic 117 mm[Hg] Fel icia Curtis pulse rate 89 /min Luci Curtis oxygen saturation, oximetry 98 % Luci Curtis respiratory rate E&M 16 /min Luci Curtis temperature E&M 97.8 [degF] Luci Curtis weight E&M 181 [lb_av] Luci Acevedo height E&M 70 [in_i] Luci Acevedo ALLERGIES No Known Drug Allergies HISTORY OF MEDICATION USE No Known Medication SOCIAL HISTORY Date Observation Value Provider social history E&M S moking History: Michael kaur is a former smoker. Yaritza Mora MD social history reviewed E&M revi ewed - no changes required Yaritza Mora MD smoking, date started 1983 Junaid delgado Acevedo smoking, year quit 2019 Luci F ox smoking history, total pack/day 1 Luci Acevedo cigarette use yes Luci Acevedo smoking status Former smoker Luci Acevedo INSURANCE PROVIDERS Payer name Policy type / Coverage type [place] red alliance party ID [id number] insurance [employer] [id number] TREATMENT PLAN Date Name Performer Cardiology Yaritza Mora MD Cardiology Yaritza Mora MD Cardiology Yaritza Mora MD Cardiology Yaritza Mora MD HISTORY OF PROCEDURES Procedure Date Procedure Name Provider Procedure Notes S tatus Event Monitor Yaritza Mora MD comple ninfa EKG Yaritza Mora MD completed
--- OUTSIDE RECORDS SUMMARY | 2024-11-27 19:20 | XMS_ITS | Encounter Summary ---
Author Organization [facility] Address [address] [place] [address] Care Team Providers Care Dice Table Operator Name Role Phone Unavailable Primary Care Provider Unavailabl e Encounter Details Date Type Department Care Team (Late st Contact Info) Description 11/21/2022 Lab Requisition [facility] [address] [place] [address] Nikko Clark MD [address] [place] [address] Social History Tobacco Use Types Packs/Day Years Used Date Smoking Tobacco: Never Assessed Sex and Gender Information Value Date Recorded Sex Assigned at Not on file Gender Identity Not on file Sexual Orientation Not on file documented as of this encounter Plan of Treatment Not on file documented as of this encounter Procedures Procedure Name Priority Date/Time Associated Diagnosis Comments DERMATOPATHOLOGY Routine 11/20/2022 12:0 0 AM CDT documented in this encounter Results * DERMATOPATHOLOGY (11/20/2022 12:00 AM CDT) Case Report Dermatopathology Report Case: [id number] Authorizing Provider: Nikko Clark MD Collected: 11/20/2022 12:00 AM Ordering Location: [facility] Received: 11/21/2022 12:16 PM Pathologist: Norma Adhikari MD Specimens: A) - Skin, right superior forehead B) - Skin, right superior border of ala 2:05 PM CDT DERMATOPATHOLOGY LABORATORY Final Diagnosis Specimen A. SKIN, right superior forehead: PSORIASIFORM DERMATITIS (L44.8) (see microscopic description and comment) Specimen B. SKIN, right superior border of ala: VERRUCA PLANA (B07.8) (see microscopic description) 3 2:05 PM [facility] DERMATOPATHOLOGY LABORATORY Clinical History A: R/O SCC, BCC, HAK B: R/O SCC, HAK, Other 3 2:05 PM [facility] DERMATOPATHOLOGY LABORATORY Gross Description Specimen A: Received is one formalin filled container labeled with the patient's name and designated right superior forehead. The specimen consists of a shave biopsy measuring [id number]. Jar 0. Specimen B: Received is one formalin filled container labeled with the patient's name and designated right superior border of ala. The specimen consists of a shave biopsy measuring [id number]. Jar 0. 3 2:05 PM [facility] DERMATOPATHOLOGY LABORATORY Microscopic Description Specimen A. SKIN, right superior forehead: There is psoriasiform hyperplasia of the epidermis with focal parakeratosis and spongiosis. There is a superficial, mainly lymphohistiocytic inflammatory infiltrate. GMS stain is negative for fungus. IL-36 stains the upper epidermis in several areas but is negative in others. COMMENT: The histological differential diagnosis includes early / partially treated psoriasis and a chronic eczematous dermatitis. Specimen B. SKIN, right superior border of ala: There is gently papillated epidermal hyperplasia, hypergranulosis, and laminated hyperorthokeratosis . Additional deeper sections were obtained and reviewed. 3 2:05 PM [facility] DERMATOPATHOLOGY LABORATORY Disclaimer An external and internal positive and negative controls are appropriate for the histochemical, immunohistochemical and immunofluorescence stain(s) in this case (if any), except where stated explicitly. The performance characteristics of the stain(s) cited in this report were developed and its performance characteristic determined by the Dermatopathology Laboratory at [facility], directed by Dr. Corey Hampton. These tests need not be, and therefore are not, approved by the [place] Food and Drug Administration. The tests are used for clinical purposes. Billing Codes Specimen Charges Stain Charges 65411 [id number] 1 1 [id number] 1 1 3 2:05 PM [facility] DERMATOPATHOLOGY LABORATORY Embedded Images 3 2:05 PM CDT DERMATOPATHOLOGY LABORATORY Pathology/Cytology TISSUE SPECIMEN FROM SKIN / Unknown 11/20/2022 11/21/2022 12:16 PM CDT Miscellaneous samples (specimen) TISSUE SPECIMEN FROM SKIN / Unknown 11/20/2022 11/21/2022 12:16 PM CDT Nikko Clark MD LAB - PATHOLOGY/CYTO LOGY ORDERABLES DERMATOPATHOLOGY LABORATORY [facility] - Department of Dermatology [facility] Specialized Medicine [address] [place] [address], [address] [phone] documented in this encounter Visit Diagnoses Not on filedocumented in this encounter
--- OUTSIDE RECORDS SUMMARY | 2024-11-27 19:20 | XMS_ITS | Clinical Summary ---
Author Organization [facility] Address [address] [place] [address] Phone Care Team Providers Care Pig Lead Melter Helper Name Role Phone Yvon Wang MD Primary Care Provider [phone] Franc Corea MD Unavailable Allergies Active Allergy Reactions Criticality Noted Date Comments Phentermine Hives,Itching,Swelling 09/22/2024 Medications DULoxetine HCl 40 MG Capsule Delayed Release Sprinkle 2 Active Cholecalciferol (Vitamin D) 2000 UNIT Tablet Take by mouth. Activ e fluticasone (FLONASE) 50 MCG/ACT Suspension 1 [place] by Nasal route daily. Use in each nostril as directed. Active MAGNESIUM MALATE PO Take 280 mg by mouth daily. Active MOMETASONE FUROATE EX 100 mcg/day by Apply externally route daily. Active rosuvastatin (CRESTOR) 20 MG Tablet Take 1 Tablet by mouth nightly for 90 days. 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 Tinea pedis of left foot 07/27/2016 Lipoma of left lower extremity 07/27/2016 Tobacco abuse 07/13/2016 Vitamin D deficiency 07/13/2016 Family history of hypertension 07/13/2016 Family history of hyperlipidemia 07/13/2016 Lesion of skin of foot 07/13/2016 Adjustment disorder with anxiety 03/28/2016 Other and unspecified alcohol dependence, in rem ission 03/27/2016 Resolved Problems Problem Noted Date Diagnosed Date Resolved Date Angina at rest 09/23/2024 09/24/2024 Chest pain 09/22/2024 09/24/2024 Encounters Date Type Department Care Team Description 09/24/2024 8:00 AM HARDWARE DESIGNER - 09/24/2024 9:34 AM HARDWARE DESIGNER [facility] Cardiac Funnel Setter [address] [place] [address] Francesca Garcia MD CARDIAC CATH 09/22/2024 2:05 PM HARDWARE DESIGNER - 09/24/2024 12:30 PM HARDWARE DESIGNER [facility] Med Surg [address] [place] [address] Keo Vogt MD Krishna, MD Tristan Posada, Gaudencio Glass MD Chest pain Discharge Disposition: Discharged to home or Selfcare 09/22/2024 Travel from Last 3 Months Immunizations Immunization Administration Dates Next Due COVID-19, MRNA, LNP-S, BIVAL ENT , PFIZER, 30 MCG/0.3 ML (12+ Y/O) 06/20/2022 Covid-19 Vaccine, Vector-nr, Rs-ad26, Pf, 0.5 Ml (NIDA/J&J) 11/18/2020 Influenza Vaccine 06/10/2018 Influenza Vaccine, Quadrivalent, PF 05/19/2021 Influenza, Recombinant, Quadrivalent,injectable, Pf 05/19/2021 Pneumococcal Vaccine Adult - 23 Valent 9 Family History Medical History Relation Name Comments No Known Problems Mother Relation Name Status Comments Father Mother Alive Social History Tobacco Use Types Packs/Day Years Used Date Smoking Tobacco: Former Cigarettes 1 32 Smokeless Tobacco: Never Tobacco Cessation:Counseling Given: Not Answered Alcohol Use Standard Drinks/Week Comments No 0 (1 standard drink = 0.6 oz pure alcohol) quite drinking 1 1/2 years ago use to drink daily [facility] Utilities Answer Date Recorded In the past 12 months has th e electric, gas, oil, or water company threatened to shut off services in your home? Patient unable to answer 09/22/2024 PHQ-2 Answer Date Recorded Total Score - Questions 1-9 0 10/12 Hunger Vital Sign Answer Date Recorded Within the past 12 months, y ou worried that your food would run out before you got the money to buy more. Patient unable to answer 09/22/2024 Within the past 12 months, t he food you bought just didn't last and you didn't have money to get more. Patient unable to answer 09/22/2024 PRAPARE - Transportation Answer Date Re corded In the past 12 months, has l ack of transportation kept you from medical appointments or from getting medications? Patient unable to answer 09/22/2024 In the past 12 months, has l ack of transportation kept you from meetings, work, or from getting things needed for daily living? Patient unable to answer 09/22/2024 Housing Stability Vital Sign Answer Leon e Recorded In the last 12 months, was t here a time when you were not able to pay the mortgage or rent on time? Patient unable to answer 09/22/2024 In the past 12 months, how m any times have you moved where you were living? 1 09/22/2024 At any time in the past 12 m [place], were you homeless or living in a skilled nursing (including now)? Patient unable to answer 09/22/2024 Sexually Active Control Partners Comments Yes None Male Comments No Sex and Gender Information Value Date Recorded Sex Assigned at Not on file Legal Sex Female 10:38 PM CDT Gender Identity Not on file Sexual Orientation Not on file Last Filed Vital Signs Vital Sign Reading Time Taken Comments Blood Pressure 132/71 09/24/2024 12:30 PM HARDWARE DESIGNER Pulse 63 09/24/2024 12:30 PM HARDWARE DESIGNER Temperature 36.5 C (97.7 F) 09/24/2024 12:30 PM HARDWARE DESIGNER Respiratory Rate 16 09/24/2024 12:30 PM HARDWARE DESIGNER Oxygen Saturation 95% 09/24/2024 12:30 PM HARDWARE DESIGNER Inhaled Oxygen Concentration - - Weight 89.4 kg (197 lb) 09/23/2024 9:12 AM HARDWARE DESIGNER Height 180.3 cm (5' 11 ) 09/23/2024 9:12 AM HARDWARE DESIGNER Body Mass Index 27.48 09/23/2024 9:12 AM HARDWARE DESIGNER Plan of Treatment Health Maintenance Due Date Last Done Comments Hepatitis C Virus (HCV) Screening 1965 Hepatitis B Immunization (1 of 3 - 19+ 3-dose series) 1984 Colonoscopy 2010 Zoster Immunization (1 of 2) 2015 Pneumococcal Immunization (50+ years) (2 of 2 - PCV) 11/29/2019 11/28/2018 Immunochemical Fecal Occult Blood 04/28/2022 04/28/2021 Cologuard 11/20/2023 11/19/2020, 11/19/2020 Colorectal Cancer Screening 11/20/2023 SARS-COV-2 Immunization ( season) 2024 06/20/2022, 09/16/2021, 11/18/2020 Mammogram 10/15/2024 10/15/2023, 09/10, 06/14/2021, Additional history exists Respiratory Syncytial Virus (RSV) Immunization (Adult) (1 - 1-dose 75+ series) 2040 Pneumococcal Immunization Combined Discontinued 11/28/2018 DTaP/Tdap/Td Immunization Discontinued 09/25/2019 TdaP Immunization Completed 09/25/2019 Influenza Immunization Completed 4, 06/20/2023, 06/20/2022, Additional history exists Meningococcal Immunization (ACWY) Aged Out No longer eligible based on patient's age to complete this topic Rotavirus Immunization Aged Out No lo nger eligible based on patient's age to complete this topic Procedures Procedure Name Priority Date/Time Associated Diagnosis Comments CARDIAC CATH Routine 09/24/2024 8:36 AM HARDWARE DESIGNER CBC WITH AUTO DIFFERENTIAL Routine 09/24/2024 4:50 AM HARDWARE DESIGNER COMPLETE BLOOD COUNT (CBC) WITH DIFF Routine 09/24/2024 4:50 AM HARDWARE DESIGNER BASIC METABOLIC PANEL W/ CALCIUM TOTAL Routine 09/24/2024 4:50 AM HARDWARE DESIGNER RHYTHM STRIP 09/24/2024 12:00 AM HARDWARE DESIGNER RHYTHM STRIP 09/24/2024 12:00 AM HARDWARE DESIGNER ADULT TRANS THORACIC ECHO 2D COMPLT W CONT Routine 09/23/2024 3:41 PM HARDWARE DESIGNER NM CARD MULTI SPECT WITH WALL MOTION AND EJECTION FRACTION STAT 09/23/2024 9:41 AM HARDWARE DESIGNER ADULT CV STRESS PHARMACOLOGIC W NUC MED Routine 09/23/2024 9:26 AM HARDWARE DESIGNER Chest pain CBC WITH AUTO DIFFERENTIAL Routine 09/23/2024 4:38 AM HARDWARE DESIGNER THYROID STIMULATING HORMONE (TSH) Routine 09/23/2024 4:38 AM HARDWARE DESIGNER LIPID PANEL Routine 09/23/2024 4:38 AM HARDWARE DESIGNER COMPLETE BLOOD COUNT (CBC) WITH DIFF Routine 09/23/2024 4:38 AM HARDWARE DESIGNER BASIC METABOLIC PANEL W/ CALCIUM TOTAL Routine 09/23/2024 4:38 AM HARDWARE DESIGNER RHYTHM STRIP 09/23/2024 12:00 AM HARDWARE DESIGNER RHYTHM STRIP 09/23/2024 12:00 AM HARDWARE DESIGNER RHYTHM STRIP 09/23/2024 12:00 AM HARDWARE DESIGNER TROPONIN I, HIGH SENSITIVITY (HSTRP) Routine 09/22/2024 8:19 PM HARDWARE DESIGNER XR CHEST SINGLE VIEW PORTABLE STAT 09/22/2024 3:11 PM HARDWARE DESIGNER GOLD TOP TUBE STAT 09/22/2024 2:44 PM HARDWARE DESIGNER BLUE TOP TUBE STAT 09/22/2024 2:44 PM HARDWARE DESIGNER CBC WITH AUTO DIFFERENTIAL STAT 09/22/2024 2:44 PM HARDWARE DESIGNER EXTRA TUBES STAT 09/22/2024 2:44 PM HARDWARE DESIGNER TROPONIN I, HIGH SENSITIVITY (HSTRP) STAT 09/22/2024 2:44 PM HARDWARE DESIGNER CMP (COMPREHENSIVE METABOLIC PANEL) STAT 09/22/2024 2:44 PM HARDWARE DESIGNER COMPLETE BLOOD COUNT (CBC) WITH DIFF STAT 09/22/2024 2:44 PM HARDWARE DESIGNER RHYTHM STRIP 09/22/2024 12:00 AM HARDWARE DESIGNER EKG SCAN 09/22/2024 12:00 AM HARDWARE DESIGNER ANDRIA DIAG BILATERAL DIGITAL W CAD W NINO Routine 06/14/2021 11:00 AM CDT Breast tenderness in female COLOGUARD Routine 11/19/2020 6:40 AM HARDWARE DESIGNER Screening for colon cancer from Last 3 Months or Most Recently Relevant to Health Maintenance Results * CARDIAC CATH (09/24/2024 8:36 AM HARDWARE DESIGNER) Anatomical Region Laterality Modality CARDIO N/A X-Ray Angiograph y Narrative 09/24/2024 9:18 AM HARDWARE DESIGNER Cardiac Catheterization intervention Post-procedure note Date of Procedure: 09/22/24 Surgeon(s): Francesca Garcia MD Procedure(s): Cardiac Cath Pre-operative Diagnosis: +ve stress test, unstable angina Post-operative Diagnosis: Mild non obstructive coronary artery disease Access: radial Estimated Blood Loss: Minimal Procedure details: Access obtained from the right radial artery with a 6 [place] sheath. Heparin and nitroglycerine was used for anticoagulation and as an antispasmodic. A JR4 catheter was passed into the left ventricle across aortic valve. LVEDP was documented. Contrast injection was performed to document left ventriculogram. The catheter was then pulled back and placed in the right coronary artery. Angiographic report contrast injection in multiple planes. The catheter was then removed and a JL 3.5 catheter was placed at the left coronary ostium. Angiography performed in multiple planes. The catheter was then removed. Sedation: 15 minutes of moderate sedation was provided under my direct supervision by a trained observer in the yard labor supervisor. Findings: Hemodynamics: Heart rate: 78 , BPM Blood pressure:126/82 mmHg, LVEDP: 8 mmHg Coronary anatomy: Left main: Large caliber, minimal irregularities, divides normally into LAD and Lcx. LAD: Large caliber. Minimal irregularities. Left circumflex: Large caliber. Minimal irregularities. RCA: large dominant vessel. Minimal irregularities Dominance: Right Sedation: 2 mg Versed, 100 Mcg Fentanyl. Fluroscopy: Air Kerma: 183 mgy. Fluoro time: 3.5 Min Contrast Use: 45 Ml Complications: None Impression/assessment /plan - Mild non obstructive coronary artery disease. - LV EDP of 8 mmHg. Signed: Francesca Garcia MD, 09/24/2024, 9:15 AM HARDWARE DESIGNER Lora Ball APRN, V/STOL LANDING SIGNAL OFFICER IMG CARDIAC CA TH Final Result * (ABNORMAL) CBC with Auto Differential (09/24/2024 4:50 AM HARDWARE DESIGNER) Only the most recent of3 resultswithin the time period is included. WBC 8.15 4.00 - 12.00 10(3)/mcL 09/24/2024 5:54 AM [facility] RBC 4.87 3.80 - 5.30 10(6)/[facility] 09/24/2024 5:54 AM [facility] HEMOGLOBIN (HGB) 14.8 12.0 - 15.8 g/dL 09/24/2024 5:54 AM [facility] HEMATOCRIT (HCT) 43.9 36.0 - 47.0 % 09/24/2024 5:54 AM [facility] MCV 90.1 82.0 - 96.0 fL 09/24/2024 5:54 AM [facility] MCH 30.4 26.0 - 34.0 pg 09/24/2024 5:54 AM [facility] MCHC 33.7 31.0 - 36.0 g/dL 09/24/2024 5:54 AM [facility] PLATELET COUNT 274 140 - 440 10(3)/mcL 09/24/2024 5:54 AM [facility] RDW 11.7(L) 11.8 - 15.5 % 09/24/2024 5:54 AM [facility] MPV 8.7(L) 9.7 - 12.4 fL 09/24/2024 5:54 AM [facility] NEUTROPHILS 57.5 47.0 - 73.0 % 09/24/2024 5:54 AM HARDWARE DESIGNER [facility] LYMPHOCYTES 30.7 18.0 - 42.0 % 09/24/2024 5:54 AM [facility] MONOCYTES 6.0 4.0 - 12.0 % 09/24/2024 5:54 AM [facility] EOSINOPHILS 4.7 0.0 - 5.0 % 09/24/2024 5:54 AM [facility] BASOPHILS 1.1(H) 0.0 - 1.0 % 09/24/2024 5:54 AM [facility] ABSOLUTE NEUTROPHILS 4.69 1.60 - 7.70 10(3)/[facility] 09/24/2024 5:54 AM [facility] ABSOLUTE LYMPHOCYTES 2.50 1.30 - 3.20 10(3)/[facility] 09/24/2024 5:54 AM [facility] ABSOLUTE MONOCYTES 0.49 0.20 - 1.00 10(3)/[facility] 09/24/2024 5:54 AM [facility] ABSOLUTE EOSINOPHIL 0.38 0.00 - 0.40 10(3)/[facility] 09/24/2024 5:54 AM [facility] ABSOLUTE BASOPHILS 0.09 0.00 - 0.10 10(3)/[facility] 09/24/2024 5:54 AM [facility] NRBC PER 100 WBC 0 09/24/19 5:54 AM [facility] Blood Venipuncture / Unknown 09/24/2024 4:50 AM HARDWARE DESIGNER 09/24/2024 5:45 AM HARDWARE DESIGNER us Honey Reagan MICA PATCHER, V/STOL LANDING SIGNAL OFFICER HEMATOLOGY ORDERABLES Final Result [facility] [address] [place] [address] * (ABNORMAL) BMP with Ca, Total (09/24/2024 4:50 AM HARDWARE DESIGNER) Only the most recent of2 resultswithin the time period is included. SODIUM 142 136 - 145 mmol/L 09/24/2024 6:06 AM [facility] POTASSIUM 3.9 3.5 - 5.1 mmol/L 09/24/2024 6:06 AM [facility] CHLORIDE 112(H) 98 - 107 mmol/L 09/24/2024 6:06 AM [facility] CO2, VENOUS 21(L) 22 - 30 mmol/L 09/24/2024 6:06 AM [facility] ANION GAP 12.9 <18.0 mmol/L 09/24/2024 6:06 AM [facility] GLUCOSE 112(H) 70 - 99 mg/dL 09/24/2024 6:06 AM [facility] BUN 10 10 - 20 mg/dL 09/24/2024 6:06 AM [facility] CREATININE, BLOOD 0.75 0.60 - 1.00 mg/dL 09/24/2024 6:06 AM [facility] BUN/CREATININE RATIO 13 12 - 20 ratio 09/24/2024 6:06 AM [facility] CALCIUM 8.8 8.7 - 10.5 mg/dL 09/24/2024 6:06 AM [facility] GFR, ESTIMATED >60 >=60 09/24/2024 6:06 AM [facility] Comment: Creatinine Clearance is the preferred criteria for selecting drug dose adjustments in renally impaired patients. The GFR is provided as additional pertinent clinical information. GFR is reported in mL/min/1.73 sq m. Calculation based on the Chronic Kidney Disease Epidemiology Collaboration (CKD- EPI) equation refit without adjustment for race. GFR, EST. >60 >=60 025 6:06 AM [facility] GFR, EST. NONAFRICAN >60 >=60 09/24/2024 6:06 AM [facility] Blood Venipuncture / Unknown 09/24/2024 4:50 AM HARDWARE DESIGNER 09/24/2024 5:45 AM HARDWARE DESIGNER us Honey Reagan APRN, CNP CHEMISTRY ORDERABLES Final Result [facility] [address] [place] [address] * RHYTHM STRIP (09/24/2024 12:00 AM HARDWARE DESIGNER) Only the most recent of6 resultswithin the time period is included. 09/24/2024 us Provider Scan IMG ECG ORDERABLES Final Result RESULTING AGENCY * ADULT TRANS THORACIC ECHO 2D COMPLT W CONT (09/23/2024 3:41 PM HARDWARE DESIGNER) AV Peak Grad mmHg 9.36 mmHg RESULTING AGENCY Mean Aortic Valve Gradient (MAVG) 5 mmHg RESULTING AGENCY LV end david diam cm 4.1 cm RESULTING AGENCY LV end sys diam cm 2.9 cm RESULTING AGENCY Aortic Root Diam cm 2.9 cm RESULTING AGENCY LA vol index ml/m2 24 ml/m2 RESULTING AGENCY LVOT Peak Hari m/sec 1.04 m/sec RESULTING AGENCY AV Peak Hari m/sec 1.53 m/sec RESULTING AGENCY MV Mean Grad mmHg 2 mmHg RESULTING AGENCY E/A Ratio 1.36 RESULTING AGENCY TR Hari m/sec 2.42 m/sec RESULTI NG AGENCY E/E' 8 RESULTING AGENCY AV Area (VTI) cm2 2.14 cm2 RESULTING AGENCY SEPTUM DIASTOLIC CM 1 cm RESULTING AGENCY PW DIASTOLIC CM 1.1 cm RESU LTING AGENCY LA VOLUME 50.9 ml RESULTING AGENCY LV EF(estimated)% 63 RESULTING AGENCY Anatomical Region Laterality Modality CARDIO N/A Ultrasound Narrative 09/23/2024 6:13 PM HARDWARE DESIGNER Transthoracic Echocardiography Report (TTE) Patient name CHRISTO GARCIA Kayley Jeff 1965 Patient ID (UPI) [id number] Indications: Chest pain, ASD Device closure and COPD. Study Date09/23/2024 Technical quality: Limited visualization Limitation Reason: Lung artifact Type of Study: TTE procedure: Adult Trans Thoracic Echo 2D Complete. Priority:RoutineHR: 70 bpmBP: 139/77 mmHg Contrast Medium: Lumason. Amount - 3 ml Conclusions Summary The left ventricle is normal in size. Wall thickness is normal. LV function is normal. There are no regional wall motion abnormalities. LV EF of 60-65%. Normal diastolic function. Atrial septum appears intact. Agitated contrast saline study reveals no obvious right to left shunt. no PFO. Findings Mitral Valve The mitral valve is normal. There is no evidence of mitral stenosis. Mild mitral regurgitation is present. Aortic Valve The aortic valve is trileaflet with normal leaflet excursion. There is no evidence of aortic valve stenosis. There is no significant aortic valve insufficiency. Tricuspid Valve The tricuspid valve is normal. There is no evidence of tricuspid stenosis. Mild tricuspid regurgitation. Calculated PASP of 27 mmHg using RAP of 3 mmHg. Normal pulmonary pressure. Pulmonic Valve The pulmonic valve structure appears normal. There is no evidence of pulmonic stenosis. Mild LA. Left Atrium The left atrium size is normal. Left Ventricle The left ventricle is normal in size. Wall thickness is normal. LV function is normal. There are no regional wall motion abnormalities. LV EF of 60-65%. Normal diastolic function. Right Atrium Right atrium is mildly enlarged in size. Right Ventricle Normal right ventricular cavity size and normal systolic function. Pericardial Effusion The pericardium is normal. There is no pericardial effusion visualized. Miscellaneous Aortic root and proximal ascending aorta are normal in size. Atrial septum appears intact. IVC is normal in size and respiratory response. Agitated contrast saline study reveals no obvious right to left shunt. no PFO. Valves Mitral Valve Peak E-Wave: 1.05 m/s Area (continuity): 2.23 cm^2 Peak A-Wave: 0.77 m/s Mean Velocity: 0.65 m/s Peak Gradient: 4.41 mmHg Mean Gradient: 2 mmHg Deceleration Time: 208 msec Tissue Doppler E' Velocity: 0.12 m/s E/E':8 E/A Ratio: 1.36 E/Lat E': 8 E/Med E':8.3 Aortic Valve Area (continuity): 2.14 cm^2 Mean Velocity: 1.04 m/s Area (VTI):2.14 cm^2 Mean Gradient: 5 mmHg Peak Velocity: 1.53 m/s AV VTI: 32.4 cm Peak Gradient: 9.36 mmHg Tricuspid Valve Peak E-Wave: 0.41 m/s Peak Gradient: 0.7 mmHg TR Velocity: 2.42 m/s TR Gradient: 23.43 mmHg Pulmonic Valve Peak Velocity: 1.31 m/s Mean Velocity: 0.87 m/s Peak Gradient: 6.86 mmHg Mean Gradient: 4 mmHg LVOT Peak Velocity: 1.04 m/s Mean Velocity: 0.69 m/s Peak Gradient: 4 mmHg Mean Gradient: 2 mmHg LVOT Diameter: 2 cm LVOT VTI: 22.1 cm Stroke Volume: 69 ml Stroke Volume Index: 32.86 ml/m^2 Structures Left Ventricle Diastolic Dimension: 4.1 cm Systolic Dimension: 2.9 cm Septum Diastolic: 1 cm PW Diastolic: 1.1 cm Systolic Length: 19.6 cm Diastolic Length: 34.6 cm CI: 2.31 l/min*m^2 EF Calculated: 60.09% CO: 4.86 l/min RWT: 0.54 LV EDV: 117 ml LV EDV Index: 56 m^2 FS: 29.27 % LV ESV: 46.7 ml LV Length: 8.01 cm LV ESV Index: 22 m^2 LVOT Diameter: 2 cm Global Longitudinal Strain:-15.7 Right Ventricle Tissue Doppler RV S': 12.5 TAPSE: 1.6 cm Left Atrium LA Systolic Pressure: 12.02 mmHg LA Area: 17 cm^2 LA Volume: 50.9 ml LA Index: 24ml/m^2 Right Atrium RA Area: 16.2 cm^2 Great Vessels Aorta Ascending Aorta: 2.8 cm Aorta Root:2.9 cm Ascending Aorta Index:1.33 cm/m^2 Contractility Score LV regional wall motion: (0-Not visualized 1-Normal 1'-Hyperkinesis 2-Hypokinesis 3-Akinesis 4-Dyskinesis 5-Aneurysm) Demographics Age 58 Gender Female Race Height 70.98 in. Weight 197 lbs. BMI (BSA) 27.49 kg/m^2 (2.1 m^2) Drive Tester [facility] Room 236 Interpreting Radha Referring Physician Francesca Physician Procedure Note Francesca Garcia MD - 09/23/2024 Transthoracic Echocardiography Report (TTE) Patient name CHRISTO Zaldivar Tomer 1965 Patient ID (UPI) [id number] Indications: Chest pain, ASD Device closure and COPD. Study Date09/23/2024 Technical quality: Limited visualization Limitation Reason: Lung artifact Type of Study: TTE procedure: Adult Trans Thoracic Echo 2D Complete. Priority:RoutineHR: 70 bpmBP: 139/77 mmHg Contrast Medium: Lumason. Amount - 3 ml Conclusions Summary The left ventricle is normal in size. Wall thickness is normal. LV function is normal. There are no regional wall motion abnormalities. LV EF of 60-65%. Normal diastolic function. Atrial septum appears intact. Agitated contrast saline study reveals no obvious right to left shunt. no PFO. Findings Mitral Valve The mitral valve is normal. There is no evidence of mitral stenosis. Mild mitral regurgitation is present. Aortic Valve The aortic valve is trileaflet with normal leaflet excursion. There is no evidence of aortic valve stenosis. There is no significant aortic valve insufficiency. Tricuspid Valve The tricuspid valve is normal. There is no evidence of tricuspid stenosis. Mild tricuspid regurgitation. Calculated PASP of 27 mmHg using RAP of 3 mmHg. Normal pulmonary pressure. Pulmonic Valve The pulmonic valve structure appears normal. There is no evidence of pulmonic stenosis. Mild LA. Left Atrium The left atrium size is normal. Left Ventricle The left ventricle is normal in size. Wall thickness is normal. LV function is normal. There are no regional wall motion abnormalities. LV EF of 60-65%. Normal diastolic function. Right Atrium Right atrium is mildly enlarged in size. Right Ventricle Normal right ventricular cavity size and normal systolic function. Pericardial Effusion The pericardium is normal. There is no pericardial effusion visualized. Miscellaneous Aortic root and proximal ascending aorta are normal in size. Atrial septum appears intact. IVC is normal in size and respiratory response. Agitated contrast saline study reveals no obvious right to left shunt. no PFO. Valves Mitral Valve Peak E-Wave: 1.05 m/s Area (continuity): 2.23 cm^2 Peak A-Wave: 0.77 m/s Mean Velocity: 0.65 m/s Peak Gradient: 4.41 mmHg Mean Gradient: 2 mmHg Deceleration Time: 208 msec Tissue Doppler E' Velocity: 0.12 m/s E/E':8 E/A Ratio: 1.36 E/Lat E': 8 E/Med E':8.3 Aortic Valve Area (continuity): 2.14 cm^2 Mean Velocity: 1.04 m/s Area (VTI):2.14 cm^2 Mean Gradient: 5 mmHg Peak Velocity: 1.53 m/s AV VTI: 32.4 cm Peak Gradient: 9.36 mmHg Tricuspid Valve Peak E-Wave: 0.41 m/s Peak Gradient: 0.7 mmHg TR Velocity: 2.42 m/s TR Gradient: 23.43 mmHg Pulmonic Valve Peak Velocity: 1.31 m/s Mean Velocity: 0.87 m/s Peak Gradient: 6.86 mmHg Mean Gradient: 4 mmHg LVOT Peak Velocity: 1.04 m/s Mean Velocity: 0.69 m/s Peak Gradient: 4 mmHg Mean Gradient: 2 mmHg LVOT Diameter: 2 cm LVOT VTI: 22.1 cm Stroke Volume: 69 ml Stroke Volume Index: 32.86 ml/m^2 Structures Left Ventricle Diastolic Dimension: 4.1 cm Systolic Dimension: 2.9 cm Septum Diastolic: 1 cm PW Diastolic: 1.1 cm Systolic Length: 19.6 cm Diastolic Length: 34.6 cm CI: 2.31 l/min*m^2 EF Calculated: 60.09% CO: 4.86 l/min RWT: 0.54 LV EDV: 117 ml LV EDV Index: 56 m^2 FS: 29.27 % LV ESV: 46.7 ml LV Length: 8.01 cm LV ESV Index: 22 m^2 LVOT Diameter: 2 cm Global Longitudinal Strain:-15.7 Right Ventricle Tissue Doppler RV S': 12.5 TAPSE: 1.6 cm Left Atrium LA Systolic Pressure: 12.02 mmHg LA Area: 17 cm^2 LA Volume: 50.9 ml LA Index: 24ml/m^2 Right Atrium RA Area: 16.2 cm^2 Great Vessels Aorta Ascending Aorta: 2.8 cm Aorta Root:2.9 cm Ascending Aorta Index:1.33 cm/m^2 Contractility Score LV regional wall motion: (0-Not visualized 1-Normal 1'-Hyperkinesis 2-Hypokinesis 3-Akinesis 4-Dyskinesis 5-Aneurysm) Demographics Age 58 Gender Female Race Height 70.98 in. Weight 197 lbs. BMI (BSA) 27.49 kg/m^2 (2.1 m^2) Drive Tester [facility] Room 236 Interpreting Garcia Referring Physician Francesca Physician Lora Ball MICA PATCHER, V/STOL LANDING SIGNAL OFFICER IMG ECHO ORDER ROMAN Edited Result - Final * NM CARD MULTI SPECT WITH WALL MOTION AND EJECTION FRACTION (09/23/2024 9:41 AM HARDWARE DESIGNER) Anatomical Region Laterality Modality CARDIO N/A Nuclear Medicine 09/23/2024 10:0 6 AM HARDWARE DESIGNER Impressions 09/23/2024 10:08 AM HARDWARE DESIGNER IMPRESSION: Reversible perfusion defect in the lateral wall consistent with myocardial ischemia. Normal left ventricular size and systolic function. Narrative 09/23/2024 10:08 AM HARDWARE DESIGNER EXAM DESCRIPTION: NM CARD MULTI SPECT WITH WALL MOTION AND EJECTION FRACTION RADIOPHARMACEUTICAL: Rest: 12.1 mCi Tc-99m tetrofosmin via a right forearm IV site Pharmacologic Stress: 34.8 mCi Tc-99m tetrofosmin via a right forearm IV site REASON FOR STUDY: CP- pressure 1 week TECHNIQUE: Standard myocardial perfusion SPECT images were obtained after resting tracer injection. Subsequently, an intravenous infusion of regadenoson was performed. Standard myocardial perfusion images were obtained after tracer injection at the peak effect of the drug. COMPARISON: None FINDINGS: There is decreased counts to the lateral wall during stress with reversibility demonstrated on rest images. Findings are consistent with myocardial ischemia. Gated post-stress images demonstrate normal left ventricular wall thickening. The left ventricular volume is normal and the left ventricular ejection fraction is greater than 75% (normal >45%). THIS IS AN ELECTRONICALLY VERIFIED FINAL REPORT 09/23/2024 10:06 AM - Electronically signed by Heather Hicks M.D. FT: FT Report ID: [id number] Reading Location: [place] [address] Procedure Note Heather Hill MD - 09/23/2024 EXAM DESCRIPTION: NM CARD MULTI SPECT WITH WALL MOTION AND EJECTION FRACTION RADIOPHARMACEUTICAL: Rest: 12.1 mCi Tc-99m tetrofosmin via a right forearm IV site Pharmacologic Stress: 34.8 mCi Tc-99m tetrofosmin via a right forearm IV site REASON FOR STUDY: CP- pressure 1 week TECHNIQUE: Standard myocardial perfusion SPECT images were obtained after resting tracer injection. Subsequently, an intravenous infusion of regadenoson was performed. Standard myocardial perfusion images were obtained after tracer injection at the peak effect of the drug. COMPARISON: None FINDINGS: There is decreased counts to the lateral wall during stress with reversibility demonstrated on rest images. Findings are consistent with myocardial ischemia. Gated post-stress images demonstrate normal left ventricular wall thickening. The left ventricular volume is normal and the left ventricular ejection fraction is greater than 75% (normal >45%). THIS IS AN ELECTRONICALLY VERIFIED FINAL REPORT 09/23/2024 10:06 AM - Electronically signed by Heather Hicks M.D. FT: FT Report ID: [id number] Reading Location: [id number] IMPRESSION: Reversible perfusion defect in the lateral wall consistent with myocardial ischemia. Normal left ventricular size and systolic function. Willa Saez APRN, V/STOL LANDING SIGNAL OFFICER IMG NM CARDIAC NI OR DERABLES Final Result * ADULT CV STRESS PHARMACOLOGIC W NUC MED (09/23/2024 9:26 AM HARDWARE DESIGNER) Anatomical Region Laterality Modality CARDIO N/A Electrocardiogra phy Narrative 09/23/2024 10:24 AM HARDWARE DESIGNER Non-Imaging Stress Test Patient Name CHRISTO Zaldivar Tomer 1965 Patient ID (UPI) [id number] Indications: Chest pain. Study Date09/23/2024 Type of Study: Non-Imaging Stress Test: Pharmacological. Conclusions Summary - No stress induced ischemia as per EKG criteria. - Nuclear images are reported separately. Rest ECG Normal sinus rhythm. Normal ST segment response without evidence of ischemia. No ectopy or arrhythmia. Standing HR:67 bpmStanding BP:138/71 mmHg Results ECG Normal sinus rhythm. Normal ST segment response without evidence of ischemia. No ectopy or arrhythmia. Symptoms Shortness of breath. Stress Stress Type - Protocol:Pharmacologic - Persantine Peak HR: 109 bpm [id number] Peak BP: 143/71 mmHg Predicted HR: 162 bpm % of predicted HR: 67 Test Duration: 5:00 min Reason for Termination: Completed Stress Protocol:Pharmacologic - Persantine +--------+--------+-----+------+-----+--------+--+--------+----+------+ !Stage # !Stage !Time !Dosage!Heart!Blood !CP!Pain !Pain!Pain ! ! !Name ! ! !Rate !Pressure! !Location!Type!Action! +--------+--------+-----+------+-----+--------+--+--------+----+------+ !Rest !REST !02:49! !76 !138/71 ! ! ! ! ! +--------+--------+-----+------+-----+--------+--+--------+----+------+ !0.0 !Stage 1 !00:44! !96 ! ! ! ! ! ! +--------+--------+-----+------+-----+--------+--+--------+----+------+ !Recovery!RECOVERY!01:00! !100 !143/71 ! ! ! ! ! +--------+--------+-----+------+-----+--------+--+--------+----+------+ !Recovery! !02:00! !91 !143/71 ! ! ! ! ! +--------+--------+-----+------+-----+--------+--+--------+----+------+ !Recovery! !03:00! !90 !143/71 ! ! ! ! ! +--------+--------+-----+------+-----+--------+--+--------+----+------+ !Recovery! !04:00! !85 !143/71 ! ! ! ! ! +--------+--------+-----+------+-----+--------+--+--------+----+------+ !Recovery! !04:22! !82 !137/74 ! ! ! ! ! +--------+--------+-----+------+-----+--------+--+--------+----+------+ Demographics Age 58 Gender Female Race Height 70.98 in. Weight 197 lbs. BMI 27.49 kg/m^2 Stress Survey And Mapping Technician Room 236 Nurse Tom Acevedo RN Interpreting Radha Referring Physician Francesca Physician Procedure Note Francesca Garcia MD - 09/23/2024 Non-Imaging Stress Test Patient Name CHRISTO GARCIA Kayley Pope 1965 Patient ID ([facility] [id number] Indications: Chest pain. Study Date09/23/2024 Type of Study: Non-Imaging Stress Test: Pharmacological. Conclusions Summary - No stress induced ischemia as per EKG criteria. - Nuclear images are reported separately. Rest ECG Normal sinus rhythm. Normal ST segment response without evidence of ischemia. No ectopy or arrhythmia. Standing HR:67 bpmStanding BP:138/71 mmHg Results ECG Normal sinus rhythm. Normal ST segment response without evidence of ischemia. No ectopy or arrhythmia. Symptoms Shortness of breath. Stress Stress Type - Protocol:Pharmacologic - Persantine Peak HR: 109 bpm [id number] Peak BP: 143/71 mmHg Predicted HR: 162 bpm % of predicted HR: 67 Test Duration: 5:00 min Reason for Termination: Completed Stress Protocol:Pharmacologic - Persantine +--------+--------+-----+------+-----+--------+--+--------+----+------+ !Stage # !Stage !Time !Dosage!Heart!Blood !CP!Pain !Pain!Pain ! ! !Name ! ! !Rate !Pressure! !Location!Type!Action! +--------+--------+-----+------+-----+--------+--+--------+----+------+ !Rest !REST !02:49! !76 !138/71 ! ! ! ! ! +--------+--------+-----+------+-----+--------+--+--------+----+------+ !0.0 !Stage 1 !00:44! !96 ! ! ! ! ! ! +--------+--------+-----+------+-----+--------+--+--------+----+------+ !Recovery!RECOVERY!01:00! !100 !143/71 ! ! ! ! ! +--------+--------+-----+------+-----+--------+--+--------+----+------+ !Recovery! !02:00! !91 !143/71 ! ! ! ! ! +--------+--------+-----+------+-----+--------+--+--------+----+------+ !Recovery! !03:00! !90 !143/71 ! ! ! ! ! +--------+--------+-----+------+-----+--------+--+--------+----+------+ !Recovery! !04:00! !85 !143/71 ! ! ! ! ! +--------+--------+-----+------+-----+--------+--+--------+----+------+ !Recovery! !04:22! !82 !137/74 ! ! ! ! ! +--------+--------+-----+------+-----+--------+--+--------+----+------+ Demographics Age 58 Gender Female Race Height 70.98 in. Weight 197 lbs. BMI 27.49 kg/m^2 Stress Survey And Mapping Technician Room 236 Nurse Tom Acevedo RN Interpreting Gacria Referring Physician Francesca Physician Willa Saez APRN, DILSHAD IM STRESS Meenakshi l Result * Thyroid Stimulating Hormone (TSH) (09/23/2024 4:38 AM HARDWARE DESIGNER) [facility] TSH 1.438 0.300 - 5.000 mIU/L 09/23/2024 7:12 AM HARDWARE DESIGNER [facility] Blood Venipuncture / Unknown 09/23/2024 4:38 AM HARDWARE DESIGNER 09/23/2024 6:16 AM HARDWARE DESIGNER Honey Reagan APRN, CNP CHEMISTRY ORDERABLES Final Result [facility] [address] [place] [address] * (ABNORMAL) Lipid Panel (09/23/2024 4:38 AM HARDWARE DESIGNER) [facility] CHOLESTEROL 175 <200 mg/dL 09/23/2024 7:00 AM HARDWARE DESIGNER [facility] TRIGLYCERIDES 153(H) <150 mg/dL 09/23/2024 7:00 AM HARDWARE DESIGNER [facility] HDL CHOLESTEROL 47 >40 mg/dL 7:00 AM HARDWARE DESIGNER [facility] LDL 97 <130 mg/dL 09/23/2024 7:00 AM HARDWARE DESIGNER [facility] VLDL 31 10 - 50 mg/dL 09/23/2024 7:00 AM [facility] CHOL/HDL RATIO 3.7 0.0 - 4.4 09/23/2024 7:00 AM HARDWARE DESIGNER [facility] NON-HDL CHOLESTEROL 128 <130 mg/dL 09/23/2024 7:00 AM [facility] Blood Venipuncture / Unknown 09/23/2024 4:38 AM HARDWARE DESIGNER 09/23/2024 6:16 AM HARDWARE DESIGNER Honey Reagan APRN, V/STOL LANDING SIGNAL OFFICER CHEMISTRY ORDERABLES Final Result Performing Organization Address [facility] Co de Phone Number [facility] [address] [place] [address] * TROPONIN I, HIGH SENSITIVITY (HSTRP) (09/22/2024 8:19 PM HARDWARE DESIGNER) Only the most recent of2 resultswithin the time period is included. TROPONIN I, HIGH SENSITIVITY- [place] <3 <=14 ng/L 09/22/2024 8:49 PM HARDWARE DESIGNER [facility] Comment: High-sensitivity troponin I results are reported in ng/L making the result appear to be 1,000 times higher than the contemporary troponin I value which is reported in ng/ml. Results from [place]. Blood Venipuncture / Unknown 09/22/2024 8:19 PM HARDWARE DESIGNER 09/22/2024 8:23 PM HARDWARE DESIGNER Honey Reagan APRN, V/STOL LANDING SIGNAL OFFICER CHEMISTRY ORDERABLES Final Result [facility] [address] [place] [address] * XR CHEST SINGLE VIEW PORTABLE (09/22/2024 3:11 PM HARDWARE DESIGNER) Anatomical Region Laterality Modality Chest N/A Computed Radiogr aphy 09/22/2024 3:22 PM HARDWARE DESIGNER Impressions 09/22/2024 3:25 PM HARDWARE DESIGNER IMPRESSION: Bibasilar opacities are most likely prominent vasculature. Blunting of the left costophrenic angle is likely pleural thickening. Narrative 09/22/2024 3:25 PM HARDWARE DESIGNER EXAM DESCRIPTION: XR CHEST SINGLE VIEW PORTABLE REASON FOR STUDY: intermittent mid chest pain for 1 week. hx: copd TECHNIQUE: 2 radiographic view(s) of the chest. COMPARISON: None FINDINGS: LUNGS: Bibasilar opacities are most likely prominent vasculature. No focal opacity, pleural effusion, or pneumothorax. Blunting of the left costophrenic angle is likely pleural thickening. HEART/MEDIASTINUM: Cardiac silhouette normal in size. Mediastinal and hilar contours appear normal. LINES/TUBES: None. BONES: No acute osseous abnormality. THIS IS AN ELECTRONICALLY VERIFIED FINAL REPORT 09/22/2024 3:22 PM - Electronically signed by Henrry Amado M.D. LL: LL Report ID: [id number] Reading Location: [place] [id number] Procedure Note Henrry Amado MD - 09/22/2024 EXAM DESCRIPTION: XR CHEST SINGLE VIEW PORTABLE REASON FOR STUDY: intermittent mid chest pain for 1 week. hx: copd TECHNIQUE: 2 radiographic view(s) of the chest. COMPARISON: None FINDINGS: LUNGS: Bibasilar opacities are most likely prominent vasculature. No focal opacity, pleural effusion, or pneumothorax. Blunting of the left costophrenic angle is likely pleural thickening. HEART/MEDIASTINUM: Cardiac silhouette normal in size. Mediastinal and hilar contours appear normal. LINES/TUBES: None. BONES: No acute osseous abnormality. THIS IS AN ELECTRONICALLY VERIFIED FINAL REPORT 09/22/2024 3:22 PM - Electronically signed by Henrry Amado M.D. LL: LL Report ID: [id number] Reading Location: [id number] IMPRESSION: Bibasilar opacities are most likely prominent vasculature. Blunting of the left costophrenic angle is likely pleural thickening. Keo Vogt MD IMG DIAGNOSTIC ORDERABLES Final Result * Gold Top Tube (09/22/2024 2:44 PM HARDWARE DESIGNER) Blood No Phlebotomy Charged / Unknown 09/22/2024 2:44 PM HARDWARE DESIGNER 09/22/2024 3:05 PM HARDWARE DESIGNER Keo Vogt MD CHEMISTRY ORDERABLES Final Result Performing Organization Address [facility] Co de Phone Number [facility] [place] [address] * Blue Top Tube (09/22/2024 2:44 PM HARDWARE DESIGNER) Blood No Phlebotomy Charged / Unknown 09/22/2024 2:44 PM HARDWARE DESIGNER 09/22/2024 3:05 PM HARDWARE DESIGNER Keo Vogt MD HEMATOLOGY ORDERABLES Meenakshi l Result Performing Organization Address [facility] Co de Phone Number [facility] [address] [place] [address] * Comprehensive Metabolic Panel (Cmp) [id number] (09/22/2024 2:44 PM HARDWARE DESIGNER) SODIUM 142 136 - 145 mmol/L 09/22/2024 3:31 PM HARDWARE DESIGNER [facility] POTASSIUM 3.7 3.5 - 5.1 mmol/L 09/22/2024 3:31 PM HARDWARE DESIGNER [facility] CHLORIDE 107 98 - 107 mmol/L 09/22/2024 3:31 PM HARDWARE DESIGNER [facility] CO2, VENOUS 24 22 - 30 mmol/L 09/22/2024 3:31 PM [facility] ANION GAP 14.7 <18.0 mmol/L 09/22/2024 3:31 PM [facility] GLUCOSE 97 70 - 99 mg/dL 09/22/2024 3:31 PM [facility] BUN 10 10 - 20 mg/dL 09/22/2024 3:31 PM [facility] CREATININE, BLOOD 0.75 0.60 - 1.00 mg/dL 09/22/2024 3:31 PM [facility] BUN/CREATININE RATIO 13 12 - 20 ratio 09/22/2024 3:31 PM [facility] TOTAL PROTEIN 7.4 6.3 - 8.2 g/dL 09/22/2024 3:31 PM [facility] ALBUMIN 4.5 3.5 - 5.0 g/dL 09/22/2024 3:31 PM [facility] A/G RATIO 1.6 1.0 - 2.2 09/22/2024 3:31 PM [facility] CALCIUM 9.4 8.7 - 10.5 mg/dL 09/22/2024 3:31 PM [facility] T BILI 0.4 0.2 - 1.2 mg/dL 09/22/2024 3:31 PM [facility] SGOT (AST) 21 5 - 34 U/L 09/22/2024 3:31 PM [facility] SGPT (ALT) 24 0 - 55 U/L 09/22/2024 3:31 PM [facility] ALKALINE PHOSPHATASE 114 40 - 150 U/L 09/22/2024 3:31 PM [facility] GFR, ESTIMATED >60 >=60 09/22/2024 3:31 PM [facility] Comment: Creatinine Clearance is the preferred criteria for selecting drug dose adjustments in renally impaired patients. The GFR is provided as additional pertinent clinical information. GFR is reported in mL/min/1.73 sq m. Calculation based on the Chronic Kidney Disease Epidemiology Collaboration (CKD- EPI) equation refit without adjustment for race. GFR, EST. >60 >=60 025 3:31 PM HARDWARE DESIGNER [facility] GFR, EST. NONAFRICAN >60 >=60 09/22/2024 3:31 PM HARDWARE DESIGNER [facility] Blood Venipuncture / Unknown 09/22/2024 2:44 PM HARDWARE DESIGNER 09/22/2024 3:00 PM HARDWARE DESIGNER us Keo Vogt MD CHEMISTRY ORDERABLES Final Result Performing Organization Address [facility] Co de Phone Number [facility] [address] [place] [address] * EKG SCAN (09/22/2024 12:00 AM HARDWARE DESIGNER) 09/22/2024 us Provider Scan IMG ECG ORDERABLES Final Result Performing Organization Address [facility] Co de Phone Number RESULTING AGENCY * ANDRIA DIAG BILATERAL DIGITAL W CAD W NINO (06/14/2021 11:00 AM CDT) Anatomical Region Laterality Modality breast Bilateral Mammography 06/14/2021 9:23 AM CDT Narrative 06/14/2021 11:27 AM CDT - ANDRIA DIAG BILATERAL DIGITAL W CAD W NINO - [place]RI[place] US BREAST LIMITED LT BILATERAL DIGITAL DIAGNOSTIC MAMMOGRAM 3D/2D WITH CAD WITH MEDIOLATERAL OBLIQUE CRANIOCAUDAL AND LEFT ULTRASOUND: 06/14/2021 The study was acquired using digital technology and interpreted from soft copy. Current study was also evaluated with ICAD version 7.2. 2D digital mammographic views, as well as 3D digital tomosynthesis were performed in the CC and MLO projections. CLINICAL: Diagnostic study. Bilateral breast pain for approximately 2.5 months. Both breasts were extremely tender to the touch with a focal area of pain far lateral left breast. Patient has a family history of breast cancer. Focal pain left breast. COMPARISONS: Comparison is made to exams dated: 11/17/2020 [facility], 06/03/2019, and 06/08/2018 [facility]. BREAST TISSUE:The tissue of both breasts is heterogeneously dense. This may lower the sensitivity of mammography. FINDINGS: No significant masses or calcifications are seen in either breast on the mammogram or left ultrasound. No lesion is seen underlying the area of pain at the 1 o'clock position of the left breast, 9 cm from the nipple. IMPRESSION: OVERALL STUDY BIRADS: 1 NEGATIVE There is no mammographic or sonographic evidence of malignancy. A 1 year screening mammogram is recommended. The patient has been or will be contacted. Electronically signed by: Henrry Amado M.D. ll/:06/14/2021 11:02:17 [employer](s): Nupur Carroll RDMS RT(R), [facility]; Lobito Mai)(M), [facility] letter sent: Normal Exam Reading location: [facility] OVERALL STUDY BIRADS: 1 Negative Procedure Note Henrry Amado MD - 06/14/2021 - ANDRIA DIAG BILATERAL DIGITAL W CAD W NINO - [place] US BREAST LIMITED LT BILATERAL DIGITAL DIAGNOSTIC MAMMOGRAM 3D/2D WITH CAD WITH MEDIOLATERAL OBLIQUE CRANIOCAUDAL AND LEFT ULTRASOUND: 06/14/2021 The study was acquired using digital technology and interpreted from soft copy. Current study was also evaluated with ICAD version 7.2. 2D digital mammographic views, as well as 3D digital tomosynthesis were performed in the CC and MLO projections. CLINICAL: Diagnostic study. Bilateral breast pain for approximately 2.5 months. Both breasts were extremely tender to the touch with a focal area of pain far lateral left breast. Patient has a family history of breast cancer. Focal pain left breast. COMPARISONS: Comparison is made to exams dated: 11/17/2020 [facility], 06/03/2019, and 06/08/2018 [facility]. BREAST TISSUE:The tissue of both breasts is heterogeneously dense. This may lower the sensitivity of mammography. FINDINGS: No significant masses or calcifications are seen in either breast on the mammogram or left ultrasound. No lesion is seen underlying the area of pain at the 1 o'clock position of the left breast, 9 cm from the nipple. IMPRESSION: OVERALL STUDY BIRADS: 1 NEGATIVE There is no mammographic or sonographic evidence of malignancy. A 1 year screening mammogram is recommended. The patient has been or will be contacted. Electronically signed by: Henrry Amado M.D. ll/:06/14/2021 11:02:17 [employer](s): Nupur Carroll RDMS RT(R), [facility]; Farzad Mai(Seema)(M), [facility] letter sent: Normal Exam Reading location: [facility] OVERALL STUDY BIRADS: 1 Negative Cynthia Henderson MICA PATCHER, V/STOL LANDING SIGNAL OFFICER IMG MAMMO ORDERABLE S Final Result * COLOGUARD (11/19/2020 6:40 AM HARDWARE DESIGNER) Cologuard Negative Not Applicable [facility] Comment: A negative result indicates a low likelihood that a colorectal cancer (CRC) or an advanced adenoma (adenomatous polyps with more advanced pre-malignant features) is present. The chance that a person with a negative Cologuard test has a colorectal cancer is less than 1 in 1500 (negative predictive value >99.9%) or has an advanced adenoma is less than 5.3% (negative predictive value 94.7%). These data are based on a prospective cross-sectional screening study of 10,000 individuals at average risk for colorectal cancer who were screened with both Cologuard and colonoscopy. (Erna Chawla et al, N Engl J Med 2014;370(14):6935-4058) The normal value (reference range) for this assay is negative. COLOGUARD RE-SCREENING RECOMMENDATION: Periodic routine colorectal cancer screening is an important part of preventive healthcare for asymptomatic persons at average risk for colorectal cancer. Following a negative Cologuard result, the [employer] Cancer Society and U.S. Multi-Society Task Force screening guidelines recommend a Cologuard re-screening interval of 3 years. References: [employer] Cancer Society (ACS). Colorectal cancer prevention and early detection. [place], [place]: [employer] Cancer Society; [updated 2015Jan 01]. https://www.cancer.org/cancer/iijmv-dxklfc-cnlolt/grqigrorw-qinyzltxi-qgwazaf/ acs-recommendations.html. Accessed May 10, 2018; Andrea DK, Felisha CR, [place] LunaK, Colorectal Cancer Screening: Recommendations for Physicians and Patients from the U.S. Multi-Society Task Force on Colorectal Cancer Screening, Am J Gastroenterology 2017; 112:6006-1906. TEST TYPE: Composite algorithmic analysis of stool DNA-biomarkers with hemoglobin immunoassay. Quantitative values of individual biomarkers are not reportable and are not associated with individual biomarker result reference ranges. PRECAUTIONS AND LIMITATIONS: Cologuard is intended for colorectal cancer screening of adults of either sex, 45 years or older, who are at average-risk for colorectal cancer (CRC). Cologuard has been approved for use by the U.S. FDA. Cologuard may produce a false negative or false positive result. A negative Cologuard test result does not guarantee the absence of CRC or advanced adenoma (pre-cancer). Patients with a negative Cologuard test result should be advised to continue participating in a colorectal cancer screening program. The screening interval for Cologuard is currently recommended at an interval of every 3 years by the [employer] Society and U.S. Multi-Society Task Force. A false positive result occurs when Cologuard produces a positive result, even though a colonoscopy may not find colorectal cancer or precancerous polyps. The performance of Cologuard has been established in a cross sectional study (i.e., single point in time) of average-risk adults aged 50-84. Cologuard performance in patients ages 45 to 49 years was estimated by sub-group analysis of near-age groups. Cologuard performance data in a 10,000 patient pivotal study using colonoscopy as the reference method can be accessed at the following location: www.[employer].Wiki[employer].ru/results. Additional description of the Cologuard test process, warnings and precautions can be found at www.cologuardtest.com. Rx only. Stool specimen (specimen) 11/19/2020 6:40 AM HARDWARE DESIGNER 11/20/2020 1:30 PM HARDWARE DESIGNER Katrina Rios PAC BODY FLUIDS & STO OLS ORDERABLES Final Result [employer] [address] [place] [address], [employer] [address] [place] [address] from Last 3 Months or Most Recently Relevant to Health Maintenance Insurance [facility] Advance Directives * Full Code (Latest Code Status on File) Date Activated Date Inactivated Comments 09/22/2024 7:42 PM CPR-Full Treat ment: FULL ARREST: Attempt Resuscitation/CPR wit intubation and mechanical ventilation. PRE-ARREST: Use entire range of life support measures to stabilize the patient. Care Teams Pig Lead Melter Helper Relationship Specialty Start Date End Date Yvon Wang MD [address] [place] [address] PCP - General Family Medicine 09/11/23 Franc Corea MD [address] [place] [address] Consulting Physician Pulmonary Disease 10/16/22
--- OUTSIDE RECORDS SUMMARY | 2024-11-27 19:20 | XMS_ITS | Encounter Summary ---
Author Organization [facility] Address [address] [facility] [place] [address] Care Team Providers Care Youth Development Specialist Name Role Phone Unavailable Primary Care Provider Unavailabl e Encounter Details Date Type Department Care Team (Late st Contact Info) Description 02/01/2022 Lab Requisition [facility] D[facility] Lab [address] [place] [address] Nikko Clark MD [address] [place] [address] Social History Tobacco Use Types [...] Priority Date/Time Associated Diagnosis Comments DERMATOPATHOLOGY Routine 01/31/2022 12:0 0 AM CDT documented in this encounter Results * DERMATOPATHOLOGY (01/31/2022 12:00 AM CDT) Case Report Dermatopathology Report Case: [id number] Authorizing Provider: Nikko Clark MD Collected: 01/31/2022 12:00 AM Ordering Location: [facility] Lab Received: 02/01/2022 01:53 PM Pathologist: Florence Hampton MD Specimen: Skin, right cheek laterally 4:24 PM CDT DERMATOPATHOLOGY LABORATORY Final Diagnosis Specimen A. 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 Other Dermatitis 2 4:24 PM CDT DERMATOPATHOLOGY LABORATORY Gross Description Specimen A: Received is one formalin filled container labeled with the patient's name and designated right cheek laterally. The specimen consists of a shave biopsy measuring [id number] and it is bisected. Jar 0. 2 4:24 PM CDT DERMATOPATHOLOGY LABORATORY Microscopic Description Specimen A. SKIN, right cheek laterally: The epidermis is largely unremarkable. A mild perivascular and perifollicular inflammatory infiltrate composed predominantly of lymphocytes is noted in the upper and mid dermis. Dilated thin-walled superficial dermal blood vessels are observed. Solar elastosis is present. Periodic acid-Tami (PAS) stain fails to highlight fungal elements in the available sections and shows a normal basement membrane. Additional deeper sections were obtained and reviewed. 2 4:24 PM CDT DERMATOPATHOLOGY LABORATORY Disclaimer An external and internal positive and negative controls are appropriate for the histochemical, immunohistochemical and immunofluorescence stain(s) in this case (if any), except where stated explicitly. The performance characteristics of the stain(s) cited in this report were developed and its performance characteristic determined by the Dermatopathology Laboratory at [facility], directed by Dr. Corey Hampton. These tests need not be, and therefore are not, approved by the [place] Food and Drug Administration. The tests are used for clinical purposes. Billing Codes Specimen Charges Stain Charges 31536 1 35637 1 2 4:24 PM CDT DERMATOPATHOLOGY LABORATORY Embedded Images 2 4:24 PM CDT DERMATOPATHOLOGY LABORATORY Pathology/Cytolog y TISSUE SPECIMEN FROM SKIN / Unknown 01/31/2022 02/01/2022 1:53 PM CDT Nikko Clark MD LAB - PATHOLOGY/CYTO LOGY ORDERABLES DERMATOPATHOLOGY LABORATORY [facility] - Department of Dermatology [address], [address] [phone] documented in this encounter Visit Diagnoses Not on filedocumented in this encounter
--- OUTSIDE RECORDS SUMMARY | 2024-11-27 19:20 | XMS_ITS | Clinical Summary ---
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 Gender Identity Not on file Sexual Orientation Not on file Plan of Treatment Health Maintenance Due Date Last Done Comments DTAP/TDAP/TD VACCINES (1 - Tdap) 1984 HEPATITIS B VACCINES (1 of 3 - 19+ 3-dose series) 10/11 PAP SMEAR 1995 BREAST CANCER SCREENING 10/30/2008 10/30/2007 COLORECTAL SCREENING 2010 Colorectal Cancer Screening 2010 FIT-DNA Q 3 years 2010 FIT/FOBT Q 1 year 2010 Flex Sig/CT Colonography Q 5 years 2010 ZOSTER VACCINE (1 of 2) 2015 INFLUENZA VACCINE (#1) 2024 Procedures Procedure Name Priority Date/Time Associated Diagnosis Comments MAMMO SCREENING BILAT Routine 10/30/2007 from Last 3 Months or Most Recently Relevant to Health Maintenance Results * MAMMO SCREENING BILAT (10/30/2007) Anatomical Region Laterality Modality Breast Bilateral Other us Pauline Garber MD MAMMO ORDERABLES Final Result from Last 3 Months or Most Recently Relevant to Health Maintenance
[2024-11-27 19:25] VITALS: BP 125/78; PULSE 81; RESP 20; TEMP 36.6; O2SAT 93
--- NOTE | 2024-11-27 19:25 | ED.URI ---
HPI - URI/Sore Throat General Chief Complaint: Upper Respiratory Infection Stated Complaint: congestion Time Seen by Provider: 11/27/24 19:29 Source: patient, RN notes reviewed and old records reviewed Mode of arrival: ambulatory Limitations: no limitations History of Present Illness HPI Narrative: 59-year-old female presents to the [facility] with complaints of having a fever on Sunday and Sunday, 3 days ago. Reports sinus congestion, chest congestion. Reports of productive cough. Has been taking NyQuil and tells in. Has a history of COPD, states that she did see her candy spreader either Sunday or Sunday of last week. Denies any chest pain, shortness of breath. Related Data Home Medications ?Medication ?Instructions ?Recorded ?Confirmed ?Last Taken ?Type duloxetine 30 mg capsule,delayed 30 mg PO DAILY 03/07/22 11/27/24 Unknown History release magnesium mal 50 mg-potassium cit 1 tablet PO DAILY 06/30/24 11/27/24 Unknown History 25 mg-taurine 175 mg-B6 1 mg tablet multivitamin with minerals-folic 1 tablet PO DAILY 06/30/24 11/27/24 Unknown History acid 0.4 mg tablet fluticasone propionate 50 2 spray intranasal DAILY 09/22/24 11/27/24 Unknown History mcg/actuation nasal spray,suspension mometasone-formoterol HFA 100 1 puff inhalation Q12H 09/22/24 11/27/24 Unknown History mcg-5 mcg/actuation aerosol inhaler (Dulera) albuterol sulfate 90 mcg/actuation inhalation 11/27/24 Unknown History aerosol inhaler duloxetine 20 mg capsule,delayed mg PO 11/27/24 Unknown History release rosuvastatin 20 mg tablet mg 11/27/24 Unknown History rosuvastatin 5 mg tablet mg 11/27/24 Unknown History Allergies Allergy/AdvReac Type Severity Reaction Status Date / Time DIET PILLS Allergy Severe Swelling Uncoded 11/27/24 19:20 of Lip/Tongue/Throat Review of Systems Review of Systems: All systems reviewed & are unremarkable except as noted in HPI and below Constitutional: Constitutional: Reports as per HPI and Reports fever(s) ENT: Reports as per HPI, Reports post nasal drip and Reports sinus pressure Cardiovascular: Cardiovascular: Reports no additional cardiovascular complaints, Denies chest pain and Denies dyspnea Respiratory: Respiratory: Reports as per HPI, Reports chest congestion, Reports cough and Denies dyspnea Musculoskeletal: Musculoskeletal: Reports no additional musculoskeletal complaints Integumentary/Breasts: Skin/Breast: Reports system reviewed and no additional complaints, except as docu PMFSH Past Medical History Medical History Atrial septal defect Depression Inflammatory arthritis Small fiber neuropathy COPD (chronic obstructive pulmonary disease) Surgical History Surgical History H/O abdominal hysterectomy History of open heart surgery Family History Family History Father Hypertension Depression Alcoholism Sibling Hypertension Depression Alcoholism Mother Cancer History of parotid cancer Grandparent Breast cancer Social History Social History Smoking packs per day: 1 Smoking cigarettes per day: 20.0 Years smoked: 36 Smoking pack-years: 36.00 Smoking status: Former smoker Tobacco type: cigarettes Alcohol intake: never Substance use: never Substance use type: does not use Living arrangements: with family Spiritual care concerns: No Comments At the time of my signature, I reviewed and agree with the nursing past medical, surgical, social, and family history. There is no relevant family history pertinent to the patient complaint. Exam Const: General: cooperative, healthy appearing, comfortable, no acute distress, well developed, alert and well nourished Nutritional Appearance: well nourished Orientation/consciousness: patient oriented x3 Limitations: no limitations HENMT: Head: normal to inspection Ears: hearing grossly normal bilaterally, external ears normal, TM's normal bilaterally, EAC's normal, mastoids normal and no periauricular adenopathy Mouth: Yes Normal oral and palatal mucosa present, Yes lip normal, Yes tongue normal and Yes moist mucous membranes Throat: uvula midline, postnasal drainage and no uvular edema Eyes: General: appearance normal, both eyes and all related structures Alignment and Position: alignment normal Neck: Neck: normal visual inspection, full ROM, no lymphadenopathy and no meningeal signs Chest: Chest palpation & inspection: normal inspection of the chest Resp: Effort & Inspection: normal respiratory effort and able to speak in complete sentences Auscultation: no crackles, no rales, no rhonchi and wheezes left lower Cardio: Rate: regular rate Skin: General skin exam: normal color and no rashes or lesions noted Neuro: General: patient oriented x3, gait normal, moves all extremities and no meningeal signs Cognition (Neuro): normal cognition Speech: normal speech Gait exam (Neuro): Normal gait present Extrem: General: normal to inspection, full ROM, capillary refill normal and normal gait Psych: Appearance: grossly normal and well kempt Mental Status: mental status grossly normal Speech and movement: Normal speech and movement present and Clear speech present Affect: normal affect Attitude: cooperative Course Course Level of Care: Express Care Visit Vital Signs Vital signs: Vital Signs Temperature 97.9 F 11/27/24 19: Pulse Rate 81 11/27/24 19:25 Respiratory Rate 20 11/27/24 19:25 Blood Pressure 125/78 11/27/24 19:25 Pulse Oximetry 93 11/27/24 19:25 Oxygen Delivery Room Air 11/27/24 19:25 Temperature 97.9 F 11/27/24 19:25 Pulse Rate 81 11/27/24 19:25 Respiratory Rate 20 11/27/24 19:25 Blood Pressure 125/78 11/27/24 19:25 Pulse Oximetry 93 11/27/24 19:25 Oxygen Delivery Room Air 11/27/24 19:25 Reviewed MDM - URI/Sore Throat MDM Narrative Medical decision making narrative: Patient sitting comfortably in exam room. Nontoxic, vitals stable. Patient in no acute distress. Patient presents with having a fever 3 days ago, resolved. Patient reports concern For pneumonia. Chest x-ray does not show acute findings. Patient appropriate for outpatient treatment of bronchitis, discussed [id number] products. Patient verbalized understanding. Discharge instructions reviewed with patient, as well as provided in writing per nursing staff. The instructions also include specific and strict return/GO TO THE ER as well as f/u information. All questions have been answered, and the patient deny any further questions with discharge and discharge plan. Some parts of this dictation were generated by voice recognition software and may contain typographical and/or grammatical inaccuracies. Differential Diagnosis Differential diagnosis: Likely upper respiratory infection, otitis media, sinusitis, viral infection, bronchitis and influenza Lab Data Labs: Lab Results 11/27/24 Range/Units 19:36 POC Influenza A Ag Negative (Negative) POC Influenza B Ag Negative (Negative) POC SARS CoV-2 Ag Negative (Negative) Reviewed Imaging Data Radiologist's impression: CHEST RADIOGRAPH, PA AND LATERAL CLINICAL HISTORY: cough, fever, HX smoke, HX COPD, OHS . COMPARISON: 09/12/2023 TECHNIQUE: PA and lateral views of the chest. FINDINGS Sternal wires and mediastinal clips are identified, the wires are midline and intact. The remainder of the cardiomediastinal silhouette is otherwise unremarkable. The lungs are clear. Visualized osseous structures and soft tissues are unremarkable. IMPRESSION: No focal infiltrate or effusion. Critical Care Time Critical Care Time Critical Care Time: No Discharge Plan Discharge Clinical Impression: Bronchitis Patient Disposition: Home, Self-Care Condition: Stable Instructions: Antibiotic Form, Acute Bronchitis (ED) Additional Instructions: Your x-ray did not show signs of pneumonia Your rapid COVID test were negative Your rapid flu test was negative Your symptoms are likely due to a viral illness, which is not treated with antibiotics. Typically viral infections last 7-10 days, can linger for couple of weeks. It is very important to treat your symptoms. Drink plenty of water, Gatorade, Pedialyte, ice pops or Jell-O. -Alternate Tylenol and Motrin per package directions for fever or pain. You can alternate every 4 hours -Antihistamine medication such as Zyrtec/Claritin/Neva during the day can help improve symptoms. -You can also use Mucinex. Be sure to drink plenty of water with this medication at least 8 ounces with every dose and it is important to drink 8 to 10 glasses of water per day. Water is a natural decongestant -Frequent hand washing or hand metallurgical analyst is one of the best ways to prevent spread of infection. -Using a vaporizer or humidifier at night will also help thin secretions and help with coughing up phlegm. -Follow up with primary care provider in 7-10 days if condition is not improving - For new or worsening symptoms go directly to the nearest ER Patient Language: Kosovan Prescriptions: New albuterol sulfate [Ventolin HFA] 90 mcg/actuation HFA aerosol inhaler 2 puff inhalation QID Qty: 6.7 0RF prednisone 20 mg tablet See Rx Instructions .Route .COMPLEX Qty: 9 0RF Rx Instructions: Take 40 mg daily for 3 days, 20 mg daily for 3 days No Action multivit with min-folic acid [Adult One Daily Multivitamin] 0.4 mg Tablet 1 tablet PO DAILY magnesium mal-pot cit-taur-B6 50-25-175-1 mg Tablet 1 tablet PO DAILY albuterol sulfate 90 mcg/actuation HFA aerosol inhaler INHALATION rosuvastatin 5 mg tablet rosuvastatin 20 mg tablet duloxetine 20 mg capsule,delayed release(DR/EC) PO Dulera 100-5 mcg/actuation HFA aerosol inhaler 1 puff INHALATION Q12H fluticasone propionate 50 mcg/actuation spray,suspension 2 spray INTRANASAL DAILY duloxetine 30 mg capsule,delayed release(DR/EC) 30 mg PO DAILY Follow-up/Referrals: Kathleen,Yvon Nicole MD [Primary Care Provider] - 1 Week (express care follow up ) Stand Alone Forms: Work/School Release IP Time of Disposition: 20:14
--- OUTSIDE RECORDS SUMMARY | 2024-11-27 19:25 | XMS_ITS | Clinical Summary ---
Author Organization [facility] Medical Office Building B Address [address] [place] [address] Care Team Providers Care Telecommunications Line Mechanic Name Role Phone Yvon Wang MD Primary Care Provider Allergies Active Allergy Reactions Criticality Noted Date Comments Adhesive Tape-Silicones Other (See comments) Reaction: contact dermatitis, Cholecalciferol (Vitamin D3) Diarrhea Low 10/31/2021 Can not take otc VIT D Medications valACYclovir (VALTREX) 500 mg tablet Take 500 mg by mouth daily 8 Active albuterol HFA (PROVENTIL HFA,VENTOLIN HFA,PROAIR HFA) 90 mcg/actuation inhaler Inhale 2 puffs every 4 (four) hours as needed 1 Active cholecalciferol (VITAMIN D-3) 2000 unit tablet Take by mouth Active magnesium gluconate 200 mg tablet 2 Active ergocalciferol (DRISDOL) 8,000 unit/mL drops Active mometasone-form oterol (DULERA 100) 100-5 mcg/actuation inhaler INHALE 2 PUFFS TWICE A DAY BY INHALATION ROUTE FOR 90 DAYS FOR BREATHING. 4 Active topiramate (TOPAMAX) 25 mg tablet Take 2 tablets (50 mg total) by mouth daily Active DULoxetine DR (CYMBALTA) 20 mg capsule 4 Active Active Problems Problem Noted Date Diagnosed Date Vasomotor symptoms due to menopause 07/18/2023 Assessment & Plan (07/18/2023 9:37 AM CHEMICAL LAB TECHNICIAN): Plan to trial Veozbreana. Discussed MOA of Veozah and how it impacts thermoregulation in the hypothalamus. Information and samples given. Baseline AST and ALT ordered. She will update us in 2-3 weeks to let us know if she is having any improvement. If no improvement will plan to defer to PCP as likely not hormone related. Benign paroxysmal positional vertigo of left ear 06/02/2022 Assessment & Plan (06/09/2022 8:47 AM CDT): Hearing and Balance testing [facility] Check blood pressure with episodes of dizziness Assessment & Plan (06/02/2022 10:27 AM CDT): Follow up in one to two weeks to recheck Post-Evangelina instructions discussed and Handout provided If no improvement with multiple treatments will recommend MRI and Neurology referral due post-concussive syndrome involvement Plantar fasciitis, bilateral 09/29/2021 Blood in the stool 10/09/2019 Assessment & Plan (10/09/2019 10:06 AM CHEMICAL LAB TECHNICIAN): Blood in stool twice in last month or so. First episode had more bright red blood than second episode. She has had colonoscopy in 2010 for same complaint. She did mention they are rebuilding a house and she is having to do a lot of lifting of heavy objects. Pt is over 50 and due for colonoscopy and due to blood in stool we will have this setup today. Will f/u about 1-2 weeks after procedure is completed. Loose stools 10/09/2019 Assessment & Plan (10/09/2019 10:05 AM CHEMICAL LAB TECHNICIAN): Pt says she has had looser stools all her life. She mentioned she does chocolate quite often and has a cup or two of coffee daily which makes her have a BM. Every so often, she will have multiple looser BM's in a day but most of the time only has once daily. Instructed to start on fiber gummies daily and incorporate at least one fresh piece of fruit daily (apple, pear, berries, etc.). Blood in stool 10/09/2019 Overview (10/09/2019): Added automatically from request for surgery [id number] Migraine 03/24/2014 Overview (12/14/2016): MIGRNE UNSP WO NTRC MGRN No pathologic diagnosis 01/24/2014 Overview (12/14/2016): No diagnosis Atopic rhinitis 01/24/2014 Overview (12/15/2016): ALLERGIC RHINITIS NOS Chronic obstructive pulmonary disease 01/24/2014 Overview (12/15/2016): CHR AIRWAY OBSTRUCT NEC Tobacco dependence syndrome 01/24/2014 Overview (12/15/2016): TOBACCO USE DISORDER Generalized anxiety disorder 01/24/2014 Overview (12/15/2016): Generalized anxiety disorder Encounters Date Type Department Care Team Description 11/18/2024 1:00 PM CDT Office Visit [facility] Pulmonary at [address] [place] [phone] Dayne Lee DO Chronic obstructive pulmonary disease, unspecified COPD type (HCC) (Primary Dx); Obstructive sleep apnea; Nocturnal hypoxia 09/22/2024 3:05 PM CHEMICAL LAB TECHNICIAN Ancillary Procedure [facility] Outside Films from Last 3 Months Surgical History Surgery Date Site/Laterality Comments HYSTERECTOMY 2003 Hysterectomy OTHER SURGICAL HISTORY 1988 heart surgery (ASD) OTHER SURGICAL HISTORY s/p hysterectomy, one ovary left OTHER SURGICAL HISTORY Lumbar DDD: Dr. Rincon, PT OTHER SURGICAL HISTORY atrial septal defect: surgical repair at [place] OTHER SURGICAL HISTORY 1987 : OTHER SURGICAL HISTORY 2003 MAXINE and unilat. oophorectomy OTHER SURGICAL HISTORY 1988 ASD, decompensation: OPEN HEART SURGERY: ASD repair OTHER SURGICAL HISTORY 01-oxyacetylene welder: Dr. Avila Medical History Medical History Date Comments Hx Other Medical 02-dermatologis t Hx Other Medical 03-pain managem ent Hx Other Medical Lumbar DDD Hx Other Medical 1988 atrial septal d efect Hx Other Medical 1987 ; Outc ome: 40 week 7 lb(s) 8 oz Male Hx Other Medical ASD, decompensation Hx Other Medical HSV , tailbone Hx Other Medical 01-oxyacetylene welder COPD (chronic obstructive pu lmonary disease) (HCC) Hypertension Depression Rosacea, unspecified Plantar fasciitis, bilateral Family History Medical History Relation Name Comments Hypertension Brother Hypertension; Depression Father Depression; Hypertension Father Hypertension; Breast cancer Mother Cancer -breast ; /Cancer, breast; Coronary artery disease Mother Valdemar nary artery disease; Other Mother's Sister 1 Atrial sep sherry defect; Other Mother's Sister 2 tachycardi a; Coronary artery disease Paternal Grandfather Coronary artery disease; Hypertension Sister Hypertension; Relation Name Status Comments Brother Father Mother Alive Mother's Sister 1 Mother's Sister 2 Paternal Grandfather Sister Social History Tobacco Use Types Packs/Day Years Used Date Smoking Tobacco: Former Cigarettes Smokeless Tobacco: Never Tobacco Cessation:Counseling Given: Not Answered Comments:Smoking History Packs/day: 1 Packs Alcohol Use Standard Drinks/Week Comments Not Currently 0 (1 standard drink = 0.6 oz pur e alcohol) PHQ-2 Answer Date Recorded PHQ-2 Total Score (If total score is 3 or more points, staff should administer the PHQ-9) 0 07/21/2024 Comments No Sex and Gender Information Value Date Recorded Sex Assigned at Not on file Legal Sex Female 12:47 AM CHEMICAL LAB TECHNICIAN Gender Identity Female 01/27/2022 9:27 AM CDT Sexual Orientation Straight 01/27/2022 9: 27 AM CDT Obstetrics History Para Term AB IAB SAB Ectopic Multiple Livin g Live Births 1 1 1 1 1 Date Outcome GA Total Labor Labor/2nd/3rd Weight Sex Type Anes PTL Renee A1 A5 Name Clin Term Living Last Filed Vital Signs Vital Sign Reading Time Taken Comments Blood Pressure 128/76 11/18/2024 1:09 PM CDT Pulse 94 11/18/2024 1:09 PM CDT Temperature 36.6 C (97.8 F) 11/18/2024 1:09 PM CDT Respiratory Rate 18 11/18/2024 1:09 PM CDT Oxygen Saturation 95% 11/18/2024 1:09 PM CDT Inhaled Oxygen Concentration - - Weight 90.7 kg (200 lb) 11/18/2024 1:09 PM CDT Height 180.3 cm (5' 11 ) 11/18/2024 1:09 PM CDT Body Mass Index 27.89 11/18/2024 1:09 PM CDT Plan of Treatment Health Maintenance Due Date Last Done Comments Hepatitis C Screening 1965 Hepatitis B Screening 1983 Zoster Vaccine (1 of 2) 2015 Pneumococcal vaccine <65 (2 of 2 - PCV) 11/29/2019 11/28/2018 Colon Cancer Screening-Colonoscopy 10/24/2020 10/24/2010 Covid-19 Vaccine (3 - 2023-2 5 season) 2024 09/16/2021, 11/18/2020 Influenza Vaccine (#1) 2024 , 06/20/2022, 05/19/2021, Additional history exists Breast Cancer Screening-Mammogram 10/15/2024 10/15/2023, 09/27/2022, 06/14/2021, Additional history exists Depression Screening 07/21/2025 07/21/2024, 07/18/2023, 04/28/2021 Regular Well Visit/Exam 18-64 07/21/2025, 07/18/2023, 07/14/2022, Additional history exists DTaP/Tdap/Td Vaccine (2 - Td or Tdap) 09/25/2029 09/25/2019 Colon Cancer Screening-CT Colonography Discontinued 10/24/2010 Colon Cancer Screening-DNA Stool Discontinued 10/24/19 11 Colon Cancer Screening-FIT Discontinued 10/24/2010 Colon Cancer Screening-Sigmoidoscopy Discontinued 10/24/2010 Procedures Procedure Name Priority Date/Time Associated Diagnosis Comments XR TRANSFER OF OUTSIDE FILMS Routine 09/22/2024 3:05 PM CHEMICAL LAB TECHNICIAN SCREENING MAMMOGRAM BILATERAL W CANELO Schedule Routine, Read Routine (OP Routine) 10/15/2023 2:52 PM CHEMICAL LAB TECHNICIAN Encounter for screening mammogram for malignant neoplasm of breast COLONOSCOPY 10/24/2010 12:00 AM CHEMICAL LAB TECHNICIAN from Last 3 Months or Most Recently Relevant to Health Maintenance Results * XR Outside Reference (09/22/2024 3:05 PM CHEMICAL LAB TECHNICIAN) Narrative [facility] - 10/30/2024 10:36 AM CHEMICAL LAB TECHNICIAN This order has been auto-finalized and does not contain a result. us Not In File Miscellaneous IMG XR PROCEDURES Meenakshi l Result [facility] * Screening Mammogram Bilateral W Canelo (10/15/2023 2:52 PM CHEMICAL LAB TECHNICIAN) Anatomical Region Laterality Modality Breast Bilateral Mammography 10/15/2023 3:09 PM CHEMICAL LAB TECHNICIAN Impressions 10/15/2023 3:09 PM CHEMICAL LAB TECHNICIAN There is no mammographic evidence of malignancy. A 1 year screening mammogram is recommended. BI-RADS: 2 - Benign. The patient has been or will be contacted. The patient will be entered into a reminder system with a target due date of 1 year for her next mammogram. Electronically signed by: Mello Macias M.D. Narrative 10/15/2023 3:09 PM CHEMICAL LAB TECHNICIAN EXAMINATION: SCREENING MAMMOGRAM BILATERAL W CANELO ORDERING HEALTHCARE PROVIDER: ZULEYKA GONZALEZ HISTORY: Routine screening mammography. COMPARISON: 09/27/2022, 06/14/2021, 11/17/2020, 06/03/2019, 06/08/2018 TECHNIQUE: CC, XCCL, and MLO views of the bilateral breasts were obtained with digital technique using breast tomosynthesis with C view. Computer aided detection was utilized. FINDINGS: DENSITY: The tissue of the bilateral breasts is heterogeneously dense, which may obscure small masses. BREASTS: Benign-appearing small oval circumscribed masses in both breasts have not suspiciously changed. There is no new suspicious finding in either breast on mammogram. us Zuleyka Gonzalez WAGE ADJUSTER IMG MAMMO PROCEDURES Final Result * COLONOSCOPY (10/24/2010 12:00 AM CHEMICAL LAB TECHNICIAN) Anatomical Region Laterality Modality Other Narrative 10/24/2010 12:00 AM CHEMICAL LAB TECHNICIAN Ordered by an unspecified provider. Procedure Note Provider, MD Michelle - 10/24/2010 12:00 AM CST PROCEDURE REPORT Patient: JOSE VILLAFUERTE Account: [id number] Room No: : 1965 Patient Type: OPA Attend.: Garret Bueno M.D. Admit Date: 10/24/2010 Dict.: Garret Bueno M.D. Disch. Date: NAME OF PROCEDURE: COLONOSCOPY WITH BIOPSY DATE OF PROCEDURE: 10/24/2010 HISTORY: 44-year-old female who complains of blood and diarrhea. PHYSICAL EXAMINATION: Well-developed female. Lungs are clear.Cardiovascular exam is unremarkable. DESCRIPTION OF PROCEDURE: Colonoscopy with biopsy was performed with the SafeNet video endoscope. The patient was premedicated by Anesthesia. On digital exam no abnormalities were palpable. We inserted the endoscopeand immediately saw normal-appearing mucosa with a normal vascular pattern.No evidence of inflammatory bowel disease visually. We advanced theendoscope without difficulty to the cecum. We entered the terminal ileum. All ofthis appeared to be perfectly normal. To rule out any evidence of microscopic disease, random biopsies were taken of the terminal ileum and theproximal and ascending colon and the rectum; however, to visual appearance thiswas all normal. POSTOPERATIVE DIAGNOSIS: Normal colonoscopy and normal terminal ileum. Garret Bueno M.D. DR/ TD: 2010 13:03 CC: Terrence Whyte M.D. PROCEDURE REPORT Authenticated by Garret Bueno MD On 10/28/2010 06:33:05 PM Historical Provider MD ENDOSCOPY PROCEDURES Meenakshi l Result from Last 3 Months or Most Recently Relevant to Health Maintenance Insurance [facility] H[facility]/PPO Address: [facility] [address] [place] [address] Care Teams Telecommunications Line Mechanic Relationship Specialty Start Date End Date Yvon Wang MD [address] [place] [phone] PCP - General 06/01/22
--- OUTSIDE RECORDS SUMMARY | 2024-11-27 19:25 | XMS_ITS | CONTINUITY OF CARE DOCUMENT ---
Author Name christiano lawsonolivia Address Unknown Organization [facility] Address [address] [facility] [address] [place] [address] Phone [phone] Care Team Providers Care Project Control Manager Name Role Phone Morgan SILVA, Yaritza Unavailable [phone] Katrina Guillaume Unavailable PROBLEMS Condition Status [...] In-person encounter Office Visit Yaritza Mora MD [facility] Cardiology examinationAtrial septal defect (ASD) s/p repair at Age 22PalpitationsTobacco use, quitCOPD VITAL SIGNS Date Observation Value Provider Body Mass Index (Ratio) 25.97 kg/m2 Ken Mora MD blood pressure, diastolic 65 mm[Hg] Fe tisha Curtis blood pressure, systolic 117 mm[Hg] Fel icia [...] Payer name Policy type / Coverage type [place] red green party ID [employer] insurance [email or web address] [id number] TREATMENT PLAN Date Name Performer Cardiology Yaritza Mora MD Cardiology Yaritza Mora MD Cardiology Yaritza Mora MD Cardiology Yaritza Mora MD HISTORY OF PROCEDURES Procedure Date Procedure Name Provider Procedure Notes S tatus Event Monitor Yaritza Mora MD comple ninfa EKG Yaritza Mora MD completed
--- OUTSIDE RECORDS SUMMARY | 2024-11-27 19:26 | XMS_ITS | Referral Summary ---
Author Organization [facility] Medical Office Building [address] Address [address] [place] [address] Care Team Providers Care Engine Emission Technician Name Role Phone Yvon Wang MD Primary Care Provider Encounters Date Type Department Care Team Description 11/18/2024 1:00 PM CDT Office Visit [facility] Pulmonary at [address] [place] [address] Dayne Lee DO Chronic obstructive pulmonary disease, unspecified COPD type (HCC) (Primary Dx); Obstructive sleep apnea; Nocturnal hypoxia 09/22/2024 3:05 PM LIBRARIAN HELPER Ancillary Procedure [facility] Outside Films from Last 3 Months Allergies Active Allergy Reactions Criticality Noted Date [...] 07/18/2023 Assessment & Plan (07/18/2023 9:37 AM LIBRARIAN HELPER): Plan to trial Veozah. Discussed MOA of Veozah and how it [...] 10/09/2019 Assessment & Plan (10/09/2019 10:06 AM LIBRARIAN HELPER): Blood in stool twice in last month [...] 10/09/2019 Assessment & Plan (10/09/2019 10:05 AM LIBRARIAN HELPER): Pt says she has had looser stools [...] (10/09/2019): Added automatically from request for surgery [id number] Migraine 03/24/2014 Overview (12/14/2016): MIGRNE UNSP WO NTRC MGRN No pathologic diagnosis 01/24/2014 Overview (12/14/2016): No diagnosis Atopic rhinitis 01/24/2014 Overview (12/15/2016): ALLERGIC RHINITIS NOS Chronic obstructive pulmonary disease 01/24/2014 Overview (12/15/2016): CHR AIRWAY OBSTRUCT NEC Tobacco dependence syndrome 01/24/2014 Overview (12/15/2016): TOBACCO USE DISORDER Generalized anxiety disorder 01/24/2014 Overview (12/15/2016): Generalized anxiety disorder Social History Tobacco Use Types Packs/Day Years [...] on file Legal Sex Female 12:47 AM LIBRARIAN HELPER Gender Identity Female 01/27/2022 9:27 AM CDT Sexual Orientation Straight 01/27/2022 9: 27 AM CDT Last Filed Vital Signs Vital Sign Reading [...] 11/18/2024 1:09 PM CDT Plan of Treatment Not on file Procedures Procedure Name Priority Date/Time Associated Diagnosis Comments XR TRANSFER OF OUTSIDE FILMS Routine 09/22/2024 3:05 PM LIBRARIAN HELPER SCREENING MAMMOGRAM BILATERAL W CANELO Schedule Routine, Read Routine (OP Routine) 10/15/2023 2:52 PM LIBRARIAN HELPER Encounter for screening mammogram for malignant neoplasm of breast COLONOSCOPY 10/24/2010 12:00 AM LIBRARIAN HELPER from Last 3 Months or Most Recently Relevant to Health Maintenance Results * XR Outside Reference (09/22/2024 3:05 PM LIBRARIAN HELPER) Narrative [facility] - 10/30/2024 10:36 AM LIBRARIAN HELPER This order has been auto-finalized and does not contain a result. us Not In File Miscellaneous IMG XR PROCEDURES Meenakshi l Result [facility] * Screening Mammogram Bilateral W Canelo (10/15/2023 2:52 PM LIBRARIAN HELPER) Anatomical Region Laterality Modality Breast Bilateral Mammography 10/15/2023 3:09 PM LIBRARIAN HELPER Impressions 10/15/2023 3:09 PM LIBRARIAN HELPER There is no mammographic evidence of malignancy. A 1 year screening mammogram is recommended. BI-RADS: 2 - Benign. The patient has been or will be contacted. The patient will be entered into a reminder system with a target due date of 1 year for her next mammogram. Electronically signed by: Mello Macias M.D. Narrative 10/15/2023 3:09 PM LIBRARIAN HELPER EXAMINATION: SCREENING MAMMOGRAM BILATERAL W CANELO ORDERING [...] either breast on mammogram. us Zuleyka Gonzalez COMPUTER REPAIRER IMG MAMMO PROCEDURES Final Result * COLONOSCOPY (10/24/2010 12:00 AM LIBRARIAN HELPER) Anatomical Region Laterality Modality Other Narrative 10/24/2010 12:00 AM LIBRARIAN HELPER Ordered by an unspecified provider. Procedure Note Provider, MD Michelle - 10/24/2010 12:00 AM CST PROCEDURE REPORT Patient: JOSE VILLAFUERTE Account: [id number] Room No: : 1965 Patient Type: [facility] Attend.: Garret Bueno M.D. Admit Date: 10/24/2010 Dict.: Garret Bueno M.D. Disch. Date: NAME OF PROCEDURE: COLONOSCOPY WITH BIOPSY DATE OF PROCEDURE: 10/24/2010 HISTORY: 44-year-old female who complains of blood and diarrhea. PHYSICAL EXAMINATION: Well-developed female. Lungs are clear.Cardiovascular exam is unremarkable. DESCRIPTION OF PROCEDURE: Colonoscopy with biopsy was performed with the TeachBoost video endoscope. The patient was premedicated by [...] and normal terminal ileum. Garret Bueno M.D. / TD: 2010 13:03 CC: Terrence Whyte M.D. PROCEDURE REPORT Authenticated by Garret Bueno MD On 10/28/2010 06:33:05 PM us Historical Provider MD ENDOSCOPY PROCEDURES Meenakshi l Result from Last 3 Months or Most Recently Relevant to Health Maintenance Insurance [facility] [place] [address] [facility] HMO/PPO Address: [facility] [address] [place] [address] [address] [facility] [place] [address] Care Teams Engine Emission Technician Relationship Specialty Start Date End Date Yvon Wang MD [address] [place] [address] PCP - General 06/01/22
[2024-11-27 19:55] LABS: EDINFLUASCREEN Negative (Negative); EDINFLUBSCREEN Negative (Negative)
[2024-11-27 19:56] LABS: EDCOVIDSCREEN Negative (Negative)
== END 2024-11-27 20:20 | disposition home or self-care (01) ==
PROVIDERS: Emergency Provider Nurse Practitioner; PCP Family Medicine
DX: J40 Bronchitis, not specified as acute or chronic (principal); J44.9 Chronic obstructive pulmonary disease, unspecified; Z79.899 Other long term (current) drug therapy; Z87.891 Personal history of nicotine dependence; Z20.822 Contact with and (suspected) exposure to COVID-19
CPT/HCPCS: 71046; 87426; 87804; 99213; G0463